=== PATIENT | female | born 1955 | race African-American/Black ===

== ENCOUNTER 2018-04-30 00:40 | Emergency (ER) | payer MEDICARE, MEDICAID ==
[2018-04-30] MEDS ORDERED: Sodium Chloride 0.9% 10 ML Syringe FLUSH PRN (00:54)
[2018-04-30] MEDS: Sodium Chloride 0.9% 1,000 ML IV ONE (01:45)
[2018-04-30 01:56] LABS: CHLORIDE,CL 101 mmol/L (98-107); SODIUM,NA 139 mmol/L (136-145)
[2018-04-30 01:58] LABS: ANION GAP 12.4 mmol/L (10-20)
[2018-04-30] MEDS: Ondansetron 4 MG/2 ML SDV IVPUSH ONE (02:00)
[2018-04-30] MEDS: Ketorolac 30 MG/ML SDV IVPUSH ONE (02:03)
--- NOTE | 2018-04-30 02:43 | EDM.PDOC ---
ED HPI GENERAL MEDICAL PROBLEM - General Stated Complaint: Abdominal pain Time Seen by Provider: 04/30/18 00:53 Source of Information: Reports: Patient, RN, RN Notes Reviewed History Limitations: Reports: No Limitations - History of Present Illness INITIAL COMMENTS - FREE TEXT/NARRATIVE: Patient is brought to the ED at [facility] via EMS for severe generalized abdominal pain. Patient states the pain started early today. She denies any N/V/ D. No blood in stool. She states the pain is sharp and stabbing. No radiation of the pain. She states the pain is located above the umbilicus to the epigastric area. No recent abdominal surgeries per patient. 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 Denies: Diarrhea, Nausea, Vomiting Skin: Reports: No Symptoms Neurological: Reports: No Symptoms ED EXAM, GI/ABD - Physical Exam Exam: See Below Exam Limited By: No Limitations General Appearance: Alert, Moderate Distress Respiratory/Chest: No Respiratory Distress, Lungs Clear, Normal Breath Sounds Cardiovascular: Normal Peripheral Pulses, Regular Rate, Rhythm GI/Abdominal Exam: Soft, Tender, Abnormal Bowel Sounds (Hyperactive) Back Exam: Normal Inspection Extremities: Normal Inspection Neurological: Alert, Oriented Skin Exam: Warm, Dry, Intact, Normal Color Course - Orders/Labs/Meds Orders: Active Orders 24 hr Category Date Time Status Abdomen Pelvis w Cont [CT] Stat Exams 04/30/18 01:20 Taken DRUG SCREEN, URINE [URCHEM] Stat Lab 04/30/18 00:56 Ordered UA W/MICROSCOPIC [URIN] Stat Lab 04/30/18 00:56 Ordered Sodium Chloride 0.9% [Saline Flush] Med 04/30/18 00:54 Active 10 ml FLUSH ASDIRECTED PRN Peripheral IV Insertion Adult [OM.PC] Routine Oth 04/30/18 00:54 Ordered Medication Orders Sodium Chloride (Saline Flush) 10 ml FLUSH ASDIRECTED PRN PRN Reason: Keep Vein Open Labs: Laboratory Tests 04/30/18 04/30/18 04/30/18 Range/Units 01:28 01:28 01:28 WBC 5.3 (4.0-10.0) x10^3/uL RBC 4.47 (4.00-5.50) x10^6/uL Hgb 13.6 D (12.0-16.0) g/dL Hct 40.7 (33.0-47.0) % MCV 91.1 (78.0-93.0) fL MCH 30.4 (26.0-32.0) pg MCHC 33.4 (32.0-36.0) g/dL RDW Coeff of Heraclio 16.4 H (10.0-15.0) % Plt Count 432 H D (130-400) x10^3/uL Neut % (Auto) 63.1 (50.0-80.0) % Lymph % (Auto) 26.5 (25.0-50.0) % [place] % (Auto) 8.1 (2.0-11.0) % Eos % (Auto) 1.5 (0.0-4.0) % Baso % (Auto) 0.8 (0.2-1.2) % Sodium 139 (136-145) mmol/L Potassium 3.4 L (3.5-5.1) mmol/L Chloride 101 (98-107) mmol/L Carbon Dioxide 29 (21-32) mmol/L Anion Gap 12.4 (10-20) mmol/L BUN 18 (7-18) mg/dL Creatinine 1.0 (0.55-1.02) mg/dL Est Cr Clr Drug Dosing 48.25 mL/min Estimated GFR (MDRD) > 60 Glucose 126 H (74-106) mg/dL Lactic Acid 0.8 (0.4-2.0) mmol/L Calcium 9.8 (8.5-10.1) mg/dL Corrected Calcium 10.36 H (8.5-10.1) mg/dL Total Bilirubin 0.5 (0.2-1.0) mg/dL AST 19 (15-37) U/L ALT 23 (14-59) U/L Alkaline Phosphatase 86 (46-116) U/L C-Reactive Protein 0.3 (<=0.9) mg/dL Total Protein 9.6 H (6.4-8.2) g/dL Albumin 3.3 L (3.4-5.0) g/dL Globulin 6.3 Albumin/Globulin Ratio 0.52 Amylase 88 (25-115) U/L Lipase 101 (73-393) U/L Meds: Medications Generic Name Dose Route Start Last Admin Trade Name Freq PRN Reason Stop Dose Admin Sodium Chloride 10 ml 04/30/18 00:54 Saline Flush FLUSH ASDIRECTED PRN Keep Vein Open Discontinued Medications Generic Name Dose Route Start Last Admin Trade Name Freq PRN Reason Stop Dose Admin Sodium Chloride 1,000 mls @ 999 mls/hr 04/30/18 00:55 04/30/18 01:45 Normal Saline IV 04/30/18 01:55 999 mls/hr ONETIME ONE Administration Iopamidol 100 ml 04/30/18 01:47 Isovue-300 (61%) IVPUSH 04/30/18 01:48 ONETIME ONE Ketorolac Tromethamine 30 mg 04/30/18 00:56 04/30/18 02:03 Toradol IVPUSH 04/30/18 00:57 30 mg ONETIME ONE Administration Ondansetron HCl 4 mg 04/30/18 00:55 04/30/18 02:00 Zofran IVPUSH 04/30/18 00:56 4 mg ONETIME ONE Administration - Radiology Interpretation Free Text/Narrative:: CT Abd/Pelvis: SBO 2/2 right lower quadrant ventral hernia; multiple other findings as described in scanned report in EMR CT Results Date: 04/30/18 CT Results Time: 02:26 Departure - Departure Time of Disposition: 03:00 Disposition: DC/Tfer to Acute Hospital 02 Condition: Good Clinical Impression: SBO (small bowel obstruction) Ventral hernia Qualifiers: Obstruction and gangrene presence: with obstruction but without gangrene Qualified Code(s): K43.6 - Other and unspecified ventral hernia with obstruction , without gangrene - Discharge Information *PRESCRIPTION DRUG MONITORING PROGRAM REVIEWED*: Not Applicable *COPY OF PRESCRIPTION DRUG MONITORING REPORT IN PATIENT JANEEN: Not Applicable Forms: Interfacility Transfer [facility] ED Communication - ED Communication Date/Time Date: 04/30/18 Time Called: 02:50 - Discussed Case With (1) Discussed Case With (1): Admitting Provider (Dr. Gloria, surgeon) - Conversation Summary Admitting Provider Agreed to Patient's Admission: Yes Patient Aware of Amendments fo Care Plan: Yes - Problem List Review Problem List Initiated/Reviewed/Updated: Yes - My Orders Last 24 Hours: My Active Orders 04/30/18 00:54 Sodium Chloride 0.9% [Saline Flush] 10 ml FLUSH ASDIRECTED PRN Peripheral IV Insertion Adult [OM.PC] Routine 04/30/18 00:56 DRUG SCREEN, URINE [URCHEM] Stat UA W/MICROSCOPIC [URIN] Stat 04/30/18 01:20 Abdomen Pelvis w Cont [CT] Stat - Assessment/Plan Last 24 Hours: My Active Orders 04/30/18 00:54 Sodium Chloride 0.9% [Saline Flush] 10 ml FLUSH ASDIRECTED PRN Peripheral IV Insertion Adult [OM.PC] Routine 04/30/18 00:56 DRUG SCREEN, URINE [URCHEM] Stat UA W/MICROSCOPIC [URIN] Stat 04/30/18 01:20 Abdomen Pelvis w Cont [CT] Stat Assessment:: SBO Ventral Hernia Abdominal Pain Plan: Case discussed with Dr. Gloria, Surgery [facility]. Patient accepted in transfer. Patient will be sent via ALS ground. Patient aware of transfer and agrees with plan of care. Patient discharged in stable condition.
[2018-04-30] MEDS: Iopamidol 612 MG/ML 100 ML Bottle IVPUSH ONE (06:26)
== END 2018-04-30 03:30 | disposition short-term general hospital (02) ==
LOC: VM.ED 00:40
DX: K43.6 Other and unspecified ventral hernia with obstruction, without gangrene (principal); K56.609 Unspecified intestinal obstruction, unspecified as to partial versus complete obstruction
CPT/HCPCS: 36415; 74177; 80053; 82150; 83605; 83690; 85025; 86140; 96361; 96374; 96375; 99285; J1885; J2405; J7030; Q9967

== ENCOUNTER 2018-05-02 05:40 | Emergency (ER) | payer MEDICARE, MEDICAID ==
[2018-05-02] MEDS ORDERED: Sodium Chloride 0.9% 10 ML Syringe FLUSH PRN (05:51)
--- NOTE | 2018-05-02 06:00 | EDM.PDOC ---
ED HPI GENERAL MEDICAL PROBLEM - General Chief Complaint: Abdominal Pain Stated Complaint: Abdominal Pain Time Seen by Provider: 05/02/18 05:45 Source of Information: Reports: Patient, EMS History Limitations: Reports: No Limitations - History of Present Illness INITIAL COMMENTS - FREE TEXT/NARRATIVE: Patient comes into the emergency department with complaint of abdominal pain. Patient was seen in the emergency department approximately 48 hours ago and was diagnosed with a ventral hernia along with a bowel obstruction. Surgical consultation was completed with [facility] with recommendation to have the patient transferred for further surgical intervention. Patient decided to leave AMA for she did not feel her house was secure and did not trust the police to secure it. She did not trust the people that were staying there as well. Patient states that a family member had come in on the bus tonight at 11:30 so she decided to present to the emergency department. However before presenting to the emergency department she states she had one drink at home with gin and orange juice for excellently 2 shots in the drink around 2 hours ago. The patient contacted EMS to transport her. When EMS was on scene EMS reports that the patient was cooking potatoes and was eating upon their arrival into the house. Patient states she was hungry and eats some food prior to coming to the hospital. patient states that the abdominal pain has not gone away it's gotten worse. she denies any nausea or vomiting, chest pain, shortness of breath, headache, dizziness, numbness or tingling. she is not able to localize her discomfort in her abdominal cavity other than "the whole thing hurts ". she has not taken her temperature she has not no she's been warm. patient is a poor historian does not offer a lot of insight. Onset: Gradual Location: Reports: Generalized Quality: Reports: Pressure, Other Severity: Moderate Improves with: Reports: None Worsens with: Reports: None Associated Symptoms: Reports: No Other Symptoms Abdomen Pain Score (Numeric/FACES): 7 - Related Data Allergies Allergy/AdvReac Type Severity Reaction Status Date / Time No Known Allergies Allergy Verified 05/02/18 06:34 Home Meds: Home Meds Cyanocobalamin (Vitamin B-12) [B-12] 1,000 mcg PO DAILY 04/30/18 [History] Losartan/Hydrochlorothiazide [Losartan-HCTZ 100-12.5 MG] 1 tab PO DAILY [History] Magnesium Oxide 400 mg PO DAILY 04/30/18 [History] Past Medical History Cardiovascular History: Reports: Hypertension ED ROS GENERAL - Review of Systems Review Of Systems: See Below Constitutional: Reports: No Symptoms HEENT: Reports: No Symptoms Respiratory: Reports: No Symptoms Cardiovascular: Reports: No Symptoms Endocrine: Reports: No Symptoms GI/Abdominal: Reports: Abdominal Pain : Reports: No Symptoms Musculoskeletal: Reports: No Symptoms Skin: Reports: No Symptoms Neurological: Reports: No Symptoms Psychiatric: Reports: No Symptoms Hematologic/Lymphatic: Reports: No Symptoms Immunologic: Reports: No Symptoms ED EXAM, GENERAL - Physical Exam Exam: See Below Exam Limited By: No Limitations General Appearance: Alert, WD/WN, No Apparent Distress Head: Atraumatic, Normocephalic Neck: Normal Inspection, Supple, Non-Tender, Full Range of Motion Respiratory/Chest: No Respiratory Distress, Lungs Clear, Normal Breath Sounds, No Accessory Muscle Use, Chest Non-Tender Cardiovascular: Normal Peripheral Pulses, Regular Rate, Rhythm, No Edema GI/Abdominal: Distended, Guarding, Abnormal Bowel Sounds Back Exam: Normal Inspection, Full Range of Motion Extremities: Normal Inspection, Normal Range of Motion, Non-Tender Neurological: Alert, Oriented, Normal Gait, Normal Reflexes Psychiatric: Normal Affect, Normal Mood Skin Exam: Warm, Dry, Intact, Normal Color, No Rash Course - Vital Signs Last Recorded V/S: Last Vital Signs Temp 35.6 C 05/02/18 06:36 Pulse 82 05/02/18 07:11 Resp 16 05/02/18 07:11 BP 92/54 L 05/02/18 07:11 Pulse Ox 97 05/02/18 07:11 - Orders/Labs/Meds Orders: Active Orders 24 hr Category Date Time Status Abdomen Pelvis w Cont [CT] Stat Exams 05/02/18 05:51 Taken CULTURE BLOOD [BC] Stat Lab 05/02/18 07:17 Ordered CULTURE BLOOD [BC] Stat Lab 05/02/18 07:17 Ordered DRUG SCREEN, URINE [URCHEM] Stat Lab 05/02/18 05:52 Ordered UA W/MICROSCOPIC [URIN] Stat Lab 05/02/18 05:52 Ordered Sodium Chloride 0.9% [Normal Saline] 1,000 ml Med 05/02/18 07:18 Active IV ONETIME Sodium Chloride 0.9% [Saline Flush] Med 05/02/18 05:51 Active 10 ml FLUSH ASDIRECTED PRN cefTRIAXone [Rocephin] Med 05/02/18 08:00 Active 1 gm IVPUSH DAILY Blood Culture x2 Reflex Set [OM.PC] Stat Oth 05/02/18 07:17 Ordered Peripheral IV Insertion Adult [OM.PC] Stat Ot 05/02/18 05:50 Ordered Medication Orders Ceftriaxone Sodium (Rocephin) 1 gm IVPUSH DAILY ARIA Last Admin: 05/02/18 07:39 Dose: 1 gm Sodium Chloride (Normal Saline) 1,000 mls @ 999 mls/hr IV ONETIME ONE Stop: 05/02/18 08:18 Last Admin: 05/02/18 07:39 Dose: 999 mls/hr Sodium Chloride (Saline Flush) 10 ml FLUSH ASDIRECTED PRN PRN Reason: Keep Vein Open Labs: Laboratory Tests 05/02/18 05/02/18 05/02/18 Range/Units 06:30 06:30 06:30 WBC 4.5 (4.0-10.0) x10^3/uL RBC 3.56 L (4.00-5.50) x10^6/uL Hgb 10.8 L D (12.0-16.0) g/dL Hct 32.9 L (33.0-47.0) % MCV 92.4 (78.0-93.0) fL MCH 30.3 (26.0-32.0) pg MCHC 32.8 (32.0-36.0) g/dL RDW Coeff of Heraclio 15.9 H (10.0-15.0) % Plt Count 310 D (130-400) x10^3/uL Neut % (Auto) 39.7 L (50.0-80.0) % Lymph % (Auto) 48.0 (25.0-50.0) % [place] % (Auto) 8.7 (2.0-11.0) % Eos % (Auto) 2.9 (0.0-4.0) % Baso % (Auto) 0.7 (0.2-1.2) % Sodium 136 (136-145) mmol/L Potassium 3.1 L (3.5-5.1) mmol/L Chloride 101 (98-107) mmol/L Carbon Dioxide 25 (21-32) mmol/L Anion Gap 13.1 (10-20) mmol/L BUN 19 H (7-18) mg/dL Creatinine 1.8 H (0.55-1.02) mg/dL Est Cr Clr Drug Dosing 25.63 mL/min Estimated GFR (MDRD) 35 Glucose 111 H (74-106) mg/dL Lactic Acid 3.0 H* (0.4-2.0) mmol/L Calcium 8.5 (8.5-10.1) mg/dL Corrected Calcium 9.30 (8.5-10.1) mg/dL Total Bilirubin 0.3 (0.2-1.0) mg/dL AST 24 (15-37) U/L ALT 21 (14-59) U/L Alkaline Phosphatase 70 (46-116) U/L Total Protein 8.7 H (6.4-8.2) g/dL Albumin 3.0 L (3.4-5.0) g/dL Globulin 5.7 Albumin/Globulin Ratio 0.53 Ethyl Alcohol 225 H (0-3) mg/dL Meds: Medications Generic Name Dose Route Start Last Admin Trade Name Freq PRN Reason Stop Dose Admin Ceftriaxone Sodium 1 gm 05/02/18 08:00 05/02/18 07:39 Rocephin IVPUSH 1 gm DAILY ARIA Administration Sodium Chloride 1,000 mls @ 999 mls/hr 05/02/18 07:18 05/02/18 07:39 Normal Saline IV 05/02/18 08:18 999 mls/hr ONETIME ONE Administration Sodium Chloride 10 ml 05/02/18 05:51 Saline Flush FLUSH ASDIRECTED PRN Keep Vein Open Discontinued Medications Generic Name Dose Route Start Last Admin Trade Name Freq PRN Reason Stop Dose Admin Iopamidol 100 ml 05/02/18 06:36 05/02/18 06:46 Isovue-300 (61%) IVPUSH 05/02/18 06:37 100 ml ONETIME ONE Administration Departure - Departure Time of Disposition: 07:48 Disposition: DC/Tfer to Acute Hospital 02 Condition: Good Clinical Impression: Small bowel obstruction - Discharge Information *PRESCRIPTION DRUG MONITORING PROGRAM REVIEWED*: Not Applicable *COPY OF PRESCRIPTION DRUG MONITORING REPORT IN PATIENT JANEEN: Not Applicable Referrals: Randy,Kellie Shira, DO [Primary Care Provider] - Forms: ED Department Discharge, Interfacility Transfer EMTALA - My Orders Last 24 Hours: My Active Orders 05/02/18 05:50 Peripheral IV Insertion Adult [OM.PC] Stat 05/02/18 05:51 Abdomen Pelvis w Cont [CT] Stat Sodium Chloride 0.9% [Saline Flush] 10 ml FLUSH ASDIRECTED PRN 05/02/18 05:52 DRUG SCREEN, URINE [URCHEM] Stat UA W/MICROSCOPIC [URIN] Stat 05/02/18 07:17 CULTURE BLOOD [BC] Stat CULTURE BLOOD [BC] Stat Blood Culture x2 Reflex Set [OM.PC] Stat 05/02/18 07:18 Sodium Chloride 0.9% [Normal Saline] 1,000 ml IV ONETIME 05/02/18 08:00 cefTRIAXone [Rocephin] 1 gm IVPUSH DAILY - Assessment/Plan Last 24 Hours: My Active Orders 05/02/18 05:50 Peripheral IV Insertion Adult [OM.PC] Stat 05/02/18 05:51 Abdomen Pelvis w Cont [CT] Stat Sodium Chloride 0.9% [Saline Flush] 10 ml FLUSH ASDIRECTED PRN 05/02/18 05:52 DRUG SCREEN, URINE [URCHEM] Stat UA W/MICROSCOPIC [URIN] Stat 05/02/18 07:17 CULTURE BLOOD [BC] Stat CULTURE BLOOD [BC] Stat Blood Culture x2 Reflex Set [OM.PC] Stat 05/02/18 07:18 Sodium Chloride 0.9% [Normal Saline] 1,000 ml IV ONETIME 05/02/18 08:00 cefTRIAXone [Rocephin] 1 gm IVPUSH DAILY Assessment:: 1. Abdominal pain- partial small bowel obstruction secondary to hernia Plan: 1. Labs completed in the ER results reviewed with the pt 2. CT scan completed in the ER results reviewed with the pt 3. UA completed in ER results reviewed with the pt 4. IV started with normal saline given 5. Lactic acid came back elevated. 6. Rocephin given 7. Blood cultures obtained 8. Surgical consult completed in at [facility] Dr. Mcfadden who recommends pt be transferred for surgical consult however it is not a given the pt will undergo surgical intervention. Pt is aware and is agreeable for the transfer.
[2018-05-02] MEDS ORDERED: Iopamidol 612 MG/ML 100 ML Bottle IVPUSH ONE (06:36)
[2018-05-02 07:18] LABS: ANION GAP 13.1 mmol/L (10-20)
[2018-05-02] MEDS ORDERED: Sodium Chloride 0.9% 1,000 ML IV ONE (07:18)
[2018-05-02] MEDS ORDERED: cefTRIAXone 1 GM Vial IVPUSH SCH (08:00)
== END 2018-05-02 08:30 | disposition short-term general hospital (02) ==
LOC: VM.ED 05:40
DX: K56.690 Other partial intestinal obstruction (principal); K43.6 Other and unspecified ventral hernia with obstruction, without gangrene; I10 Essential (primary) hypertension; Z79.899 Other long term (current) drug therapy
CPT/HCPCS: 36415; 74177; 80053; 80305; 81001; 83605; 85025; 87040; 96365; 99284; G0480; J0696; J7030; Q9967

== ENCOUNTER 2020-02-01 11:26 | Observation (INO) | payer MEDICARE, MEDICAID ==
[2020-02-01] MEDS ORDERED: Sodium Chloride 0.9% 10 ML Syringe FLUSH PRN (11:54)
[2020-02-01] MEDS: Sodium Chloride 0.9% 1,000 ML IV SCH ×3 (12:58→22:30)
[2020-02-01] MEDS ORDERED: HYDROmorphone 1 MG/ML Syringe IVPUSH ONE (14:27)
[2020-02-01] MEDS ORDERED: traMADol 50 MG Tab PO PRN (14:27)
[2020-02-01] MEDS ORDERED: Ondansetron 4 MG/2 ML SDV IVPUSH PRN (14:28)
[2020-02-01] MEDS ORDERED: HYDROmorphone 0.5 MG/0.5 ML Syringe IVPUSH ONE (14:45)
[2020-02-01 15:23] LABS: ANION GAP 16.6 mmol/L (10-20)
[2020-02-01] MEDS ORDERED: HYDROmorphone 0.5 MG/0.5 ML Syringe IV PRN (19:10)
--- NOTE | 2020-02-02 01:27 | HP ---
CHIEF COMPLAINT: Dizziness. HISTORY OF PRESENT ILLNESS: This is a 64-year-old female who was seen yesterday for the same complaints, sent home, but found to have a creatinine up to 2.3 when her baseline is normal. She was instructed to stop her blood pressure pills. She states that she had not really been taking her medications other than the blood pressure pills, which are Hyzaar and diltiazem. She comes back today because she is still dizzy. She just now started drinking more water. Last week, she had some vomiting, and then a few days ago she had some diarrhea, but that has all resolved. She has had worsening back pain, seems to be worse after eating. She does have a history of using alcohol. She denies any excessive use. She is a smoker. She has not had any kidney problems before, and she denies taking any NSAIDs for over a month for her back. She states she has had the back problems in the last year, but worsening recently. She has not been short of breath. She had dizziness back in October, but that got better and returned. She never came back for her followup appointment. Her heart rate was 120 back then. Today, she comes in. Her blood pressure is like 80/40. Repeat kidney function showed her creatinine to be at 3. Decision was made to admit her for observation and IV fluids. The patient was quite hopeful to go home. However, after she received a liter of fluids, she was still feeling dizzy. She threw up after she ate. Decision was made to keep her overnight. The patient also did get 0.5 mg of Dilaudid. She vomited immediately after getting it, but nurse feels that the vomiting might have been from just eating. The patient feels that it did help her pain significantly. She denies any fall or other injury. ALLERGIES: Include hydrocodone, nausea and vomiting. MEDICATION LIST: Includes albuterol inhaler as needed, vitamin B12, vitamin, diltiazem 120 daily, doxepin at bedtime. However, she has not been taking vitamin D every 7 days. Magnesium oxide 400 daily and meclizine. PAST MEDICAL HISTORY: She otherwise has a past medical history of asthma, mild, intermittent, essential hypertension, smoking, vitamin D deficiency, hypomagnesemia, moderate depression, anxiety, arthritis, thrombocytopenia in the past, hypercalcemia in the past, B12 deficiency, uncomplicated alcohol dependence, colon polyps, neurodermatitis, colon surgery for sigmoid volvulus and partial bowel resection with a ventral hernia repair, history of hospital- acquired pneumonia, possible biliary cirrhosis, but she has been off medications for that. PAST SURGICAL HISTORY: She has had the colon surgery x2, incisional hernia repair. FAMILY HISTORY: Her mother did have scleroderma and hypertension. Father had hypertension. He was murdered or shot is what her past medical history says. Her son has kidney disease and is on dialysis. SOCIAL HISTORY: She is . Her is actually in [place]. She does smoke every day. Drinks at times, but states she has been too sick to do that recently. She has some children, who live out of state, but a son does live here. REVIEW OF SYSTEMS: General: She reports she has lost 20 pounds in the last month. She has had no appetite. She has not been eating and drinking. She has had vomiting. She has had fatigue. HEENT: No sore throat or trouble swallowing. Respiratory: No cough. No shortness of breath. No wheezing. Cardiac: No chest pain. No palpitations. GI: As stated in the HPI. Musculoskeletal: She has had back pain. It has been chronic, but worse lately. It is all over the back. No point tenderness to the spine. Skin: She has not been itching again, but her fingers are almost peeling, very dry. Neurologic: No numbness or tingling. No confusion. Hematologic: She has not had any easy bleeding or bruising. Psychiatric: She is not confused or anxious. Otherwise, all systems reviewed and found to be negative unless otherwise stated. PHYSICAL EXAMINATION: Vital Signs: On admission to the hospital, I did see the patient after getting fluids. Her temperature was 96.7, then pulse 96, blood pressure 147/76, respiratory rate 24, and O2 of 96% on room air, but her pain level was 7. General: She is in no acute distress. Heart: Regular rate and rhythm. Lungs: Lung sounds are clear to auscultation bilaterally without crackles or wheezes. Abdomen: Has positive bowel sounds. Soft, nontender. Extremities: Warm and dry. No edema. Mental Status: Alert and orientated x3. I did have the patient up. She walked in the clinic. She appeared to be just mildly unstable. She was able to make it to lab. She did have symptoms of dizziness. While doing this, we did not check orthostatics as clinically sure blood pressure was already low. Neck: Carotid pulses are 2+ without bruits. Skin: Showed no abnormal lesions or sores. LABORATORY WORK: This morning showed a glucose 110, BUN 62, creatinine 3.03, sodium 140, potassium 4.1, chloride 92, bicarb 31, calcium 10.1, protein 9.3, AST 150, that is up from 99 in October, ALT 90, bilirubin 1.6. Her CBC did show her to have hemoglobin 12.2, white count 4.3, platelets 166. ESR 50. Magnesium level was actually high like over 5. It was 5.2. Vitamin D, SPEP, vitamin B12 pending. ASSESSMENT: 1. Dizziness, likely orthostatic hypotension due to volume depletion and dehydration. 2. Acute renal failure, probably due to volume depletion. 3. Essential hypertension, now with hypotension. 4. Tachycardia due to volume depletion. 5. Back pain, chronic issue. Denies new injury. 6. History of primary biliary cirrhosis, mildly elevated bilirubin. She is not on any treatments for that currently. 7. History of bowel surgeries and B12 deficiency. PLAN: At this point, the patient was admitted for observation for IV fluids. We gave her first liter 250 an hour. Now, we will switch her over to 150 mL. Keep her overnight, monitoring with telemetry. Repeat lab work in the morning. I suspect she was just very highly dehydrated. No infection is suspected. Her UA showed no wbc's or rbc's, but did have trace protein and a few granular casts. We will repeat her kidney function later this afternoon and do a lipase level. We will use small doses of IV Dilaudid for pain control and oral tramadol. We will give her a diet as tolerated for DVT prophylaxis. Anticipate a short stay less than 24 hours. She will be up and ambulating for smoking. She did not want a nicotine patch. She is a code level 1. MKA: 02/01/2020 19:28:36 MODL: 02/02/2020 00:53:37 /[id number]
[2020-02-02] MEDS: Sodium Chloride 0.9% 1,000 ML IV SCH (05:06)
[2020-02-02] MEDS ORDERED: Cyanocobalamin (Vitamin B12) 1,000 MCG Tab PO SCH (08:00)
[2020-02-02] MEDS ORDERED: Magnesium Sulfate/Water 4 GM in Premix Bag 1 BAG IV ONE (08:03)
--- NOTE | 2020-02-02 11:31 | DISCH ---
PRIMARY DISCHARGE DIAGNOSES: 1. Acute renal failure secondary to volume depletion and dehydration. 2. Dizziness secondary to hypovolemia, resolved. 3. Back pain, resolved, just got 1 dose of IV Dilaudid. The patient denied any injury. It has been a chronic problem. SPEP was drawn in the clinic and is pending. 4. Essential hypertension, had been off her medications. 5. Tachycardia due to volume depletion, resolved. 6. Severe hypomagnesemia, being replaced IV. 7. History of cirrhosis, early, probably due to alcohol. The patient denies any excessive alcohol use. Lipase was normal. 8. History of bowel surgeries and B12 deficiency. B12 level was low normal through the clinic at 576. 9. Anxiety and depression. 10.Emphysema and smoking. 11.History of thrombocytopenia with near pancytopenia on her current labs. REASON FOR ADMISSION: On the date of admission, this 64-year-old female came for a 1-day recheck of feeling dizzy after she left the urgent care. Creatinine did come back 2.3. We urged her to drink more fluids and stop her blood pressure pills. She had recently had some nausea and vomiting, however, that had resolved. She came back dizzy. Her blood pressure was like 80/40. Decision was made to admit her to observation for IV fluids. The patient was hopeful to go home the same day; however, when I rounded again on her around 5 p.m., she stated she was feeling better but had thrown up what she had eaten, and so, she agreed to stay and get IV fluids overnight. Her creatinine which was 3.0 on admission had actually improved down to 1.6 today. She received IV fluids and was making urine okay. She was eating 100% of her meal for supper. She tolerated that without vomiting. She otherwise had a magnesium level that was elevated on admission, but 0.9 this morning. We replaced IV. She did have a history of that, low magnesium. Bilirubin was 1.4 which had improved, ALT 151, and AST 88. She has had elevated liver enzymes since October. Otherwise, her white count was 3.6, hemoglobin down to 9.5, and platelets 138. She did not receive any Lovenox for DVT prophylaxis as it was felt she would have just a short-term stay. She had no blood in her vomit. No black stools. Her hemoglobin was 12 on admission, however, it was felt to go down from hemodilution. She never had any abdominal pain and her back pain had resolved at the time of discharge. UA was done which did not show any rbc's or wbc's, did have a few granular casts. Otherwise, the patient was not short of breath. She was not coughing. She does have a history of smoking and alcohol use, particularly she said she drinks Gin. She also had gotten losartan and hydrochlorothiazide separately for a 3-month supply in October and diltiazem 30 pills in October, never picked up again from the pharmacy. Very likely, she had not even been compliant with her blood pressure pills, and in fact, went into severe dehydration and renal failure. The patient admits she was not drinking much water, had had much appetite, and had lost 20 pounds, but now this morning tells me she has a good appetite. She was given some meclizine for the dizziness and she feels like she will probably continue to take that as needed. DISCHARGE PLANS AND INSTRUCTIONS: She will follow up in the clinic with Dr. Padilla on 02/07/2020 as scheduled. We will do a CBC, BMP, and magnesium at that time. She will resume her diltiazem on discharge, but stay off the losartan and hydrochlorothiazide or Hyzaar combination. She will resume magnesium pills 400 daily, vitamin D prescription once a week, B12 1000 mcg daily, vitamins as well as maintain good hydration. Tramadol short supply, 50 mg every 6 hours as needed for pain for up to 3 days, 10 pills given. PHYSICAL EXAMINATION ON DISCHARGE: Vital Signs: The patient's blood pressure was 131/86, respiratory rate 102, temperature 97.8, pulse 19, O2 of 95% on room air. General: She is in no acute distress. Heart: Regular rate and rhythm. S1, S2 without murmur. Lungs: Lung sounds are clear to auscultation bilaterally without crackles or wheezes. Extremities: Warm and dry. No edema. Mental Status: Alert and orientated x3. Abdomen: Positive bowel sounds. Soft and nontender. Back: No tenderness. Mood: She was a little agitated. She said she needed to get out here by noon because she has stuff to do, but she was not being belligerent or anything like that. MKA: 02/02/2020 09:46:37 MODL: 02/02/2020 10:33:07 /[id number]
== END 2020-02-02 13:10 | disposition home or self-care (01) ==
LOC: VM.MS 11:26
PROVIDERS: ADMIT Internal Medicine; ATTEND Internal Medicine
DX: N17.9 Acute kidney failure, unspecified (principal); E86.0 Dehydration; E86.1 Hypovolemia; I10 Essential (primary) hypertension; E83.42 Hypomagnesemia; K74.60 Unspecified cirrhosis of liver; E53.8 Deficiency of other specified B group vitamins; F41.9 Anxiety disorder, unspecified; J45.909 Unspecified asthma, uncomplicated; M54.9 Dorsalgia, unspecified; G89.29 Other chronic pain; F32.9 Major depressive disorder, single episode, unspecified; J43.9 Emphysema, unspecified; F17.200 Nicotine dependence, unspecified, uncomplicated; Z86.79 Personal history of other diseases of the circulatory system; Z98.890 Other specified postprocedural states
CPT/HCPCS: 36415; 80048; 80053; 81001; 83690; 83735; 85025; 96361; 96365; 96366; 96375; A9270; G0378; G0379; J1170; J2405; J3475; J7030

== ENCOUNTER 2020-04-03 23:44 | Emergency (ER) | payer MEDICARE, MEDICAID ==
--- NOTE | 2020-04-04 00:07 | EDM.PDOC ---
ED HPI GENERAL MEDICAL PROBLEM - General Chief Complaint: General Stated Complaint: fall, intoxication Time Seen by Provider: 04/03/20 23:45 Source of Information: Reports: Patient, EMS, EMS Notes Reviewed, RN, RN Notes Reviewed History Limitations: Reports: Intoxication - History of Present Illness INITIAL COMMENTS - FREE TEXT/NARRATIVE: Patient presents to ER per [facility] ambulance service. Patient was going home to her apartment which is [place] a bar in town, when she had a witnessed fall, hit her head and a witnessed loss of consciousness. Bystanders told EMS patient was unconscious for approximately 20 seconds. Patient denies fall, does not know why she has a lump on her head or a scrape on her lema. Patient denies any pain at this time. Patient states she has had 1 drink today, denies any drug use. Onset: Today, Sudden Location: Reports: Head - Related Data Allergies Allergy/AdvReac Type Severity Reaction Status Date / Time hydrocodone AdvReac Nausea and Verified 04/03/20 23:49 Vomiting Home Meds: Home Meds Cyanocobalamin (Vitamin B-12) [B-12] 1,000 mcg PO DAILY 04/30/18 [History] Magnesium Oxide 400 mg PO DAILY 04/30/18 [History] Albuterol [Ventolin HFA] 2 puff INH Q4H PRN 12/08/18 [History] Ergocalciferol (Vitamin D2) [Vitamin D2] 50,000 unit PO Q7D 12/08/18 [History] Doxepin [SINEquan] 50 mg PO BEDTIME 02/01/20 [History] Meclizine [Antivert] 25 mg PO Q4HR PRN 02/01/20 [History] Diltiazem [Cardizem CD] 120 mg PO DAILY #90 cap.cd 02/02/20 [Rx] Past Medical History HEENT History: Reports: Cataract Cardiovascular History: Reports: Hypertension Other Respiratory History: pneumonia. emphysema Gastrointestinal History: Reports: Colon Polyp Other Gastrointestinal History: sigmoid volvulus. partial small bowel obstruction Musculoskeletal History: Reports: Arthritis Other Neuro History: neurodermatitis Psychiatric History: Reports: Anxiety, Depression Other Psychiatric History: alcohol dependence. smoking Other Hematologic History: hypercalcemia. hypomagnesium. B12 deficiency. thrombocytopenia - Past Surgical History HEENT Surgical History: Reports: Cataract Surgery, Oral Surgery GI Surgical History: Reports: Colonoscopy Other GI Surgeries/Procedures: ventral hernia repair Social & Family History - Family History Family Medical History: Unobtainable - Caffeine Use Caffeine Use: Reports: Tea ED ROS GENERAL - Review of Systems Review Of Systems: Comprehensive ROS is negative, except as noted in HPI. ED EXAM, GENERAL - Physical Exam Exam: See Below Exam Limited By: Intoxication General Appearance: Alert, Anxious, Mild Distress Eye Exam: Bilateral Eye: Conjunctival Injection, PERRL (+3, sluggish) Ears: Normal External Exam, Normal Canal, Hearing Grossly Normal Nose: Normal Inspection Throat/Mouth: Normal Inspection, Other (lips very dry) Head: Other (large hematoma to the left upper occiputal area) Neck: Normal Inspection, Supple, Non-Tender, Full Range of Motion Respiratory/Chest: No Respiratory Distress, No Accessory Muscle Use, Chest Non- Tender, Decreased Breath Sounds Cardiovascular: Normal Peripheral Pulses, Regular Rate, Rhythm, No Edema, No Gallop, No JVD, No Murmur, No Rub Peripheral Pulses: 2+: Radial (L), Radial (R) GI/Abdominal: Normal Bowel Sounds, Soft, Non-Tender (Female) Exam: Deferred Rectal (Female) Exam: Deferred Back Exam: Normal Inspection, Full Range of Motion, NT Extremities: Normal Inspection, Normal Range of Motion, Non-Tender, Normal Capillary Refill, No Pedal Edema Neurological: Alert, Memory Loss Recent Events Psychiatric: Anxious, Tearful Skin Exam: Warm, Dry, Normal Color, No Rash, Other (Abrasion to the left lema) Lymphatic: No Adenopathy Course - Vital Signs Last Recorded V/S: Last Vital Signs Temp 96.9 F 04/04/20 03:47 Pulse 96 04/04/20 03:47 Resp 16 04/04/20 03:47 BP 139/100 H 04/04/20 04:00 Pulse Ox 89 L 04/04/20 04:00 - Orders/Labs/Meds Orders: Active Orders 24 hr Category Date Time Status Cervical Spine wo Cont [CT] Stat Exams 04/03/20 23:47 Taken Head wo Cont [CT] Stat Exams 04/03/20 23:47 Taken MVI, Adult with Vitamin K [Infuvite Adult] 10 ml Med 04/04/20 00:45 Active Folic Acid 1 mg Thiamine [Vitamin B-1] 100 mg Sodium Chloride 0.9% [Normal Saline] 1,000 ml IV Q24H Sodium Chloride 0.9% [Saline Flush] Med 04/04/20 00:42 Active 10 ml FLUSH ASDIRECTED PRN Peripheral IV Insertion Adult [OM.PC] Stat Oth 04/04/20 00:42 Ordered Medication Orders Multivitamins/Minerals 10 ml/Folic Acid 1 mg/ Thiamine HCl 100 mg/ Sodium Chloride 1,011.2 mls @ 150 mls/hr IV Q24H ARIA Stop: 04/06/20 07:30 Last Admin: 04/04/20 01:32 Dose: 150 mls/hr Documented by: MARIE Sodium Chloride (Saline Flush) 10 ml FLUSH ASDIRECTED PRN PRN Reason: Keep Vein Open Last Admin: 04/04/20 01:41 Dose: 10 ml Documented by: MARIE Labs: Laboratory Tests 04/04/20 04/04/20 Range/Units 00:08 00:08 WBC 6.5 (4.0-10.0) x10^3/uL RBC 4.11 (4.00-5.50) x10^6/uL Hgb 12.8 D (12.0-16.0) g/dL Hct 38.0 (33.0-47.0) % MCV 92.5 (78.0-93.0) fL MCH 31.1 (26.0-32.0) pg MCHC 33.7 (32.0-36.0) g/dL RDW Coeff of Heraclio 13.4 (10.0-15.0) % Plt Count 339 D (130-400) x10^3/uL Neut % (Auto) 50.4 (50.0-80.0) % Lymph % (Auto) 41.5 (25.0-50.0) % Faulkner % (Auto) 5.0 (2.0-11.0) % Eos % (Auto) 2.3 (0.0-4.0) % Baso % (Auto) 0.8 (0.2-1.2) % Sodium 142 (136-145) mmol/L Potassium 4.6 (3.5-5.1) mmol/L Chloride 106 (98-107) mmol/L Carbon Dioxide 26 (21-32) mmol/L Anion Gap 14.6 (10-20) mmol/L BUN 14 D (7-18) mg/dL Creatinine 0.8 (0.55-1.02) mg/dL Est Cr Clr Drug Dosing TNP Estimated GFR (MDRD) > 60 Glucose 90 (74-106) mg/dL Calcium 8.7 (8.5-10.1) mg/dL Corrected Calcium 9.18 (8.5-10.1) mg/dL Total Bilirubin 0.3 (0.2-1.0) mg/dL AST 76 H (15-37) U/L ALT 46 (14-59) U/L Alkaline Phosphatase 88 (46-116) U/L Total Protein 9.9 H (6.4-8.2) g/dL Albumin 3.4 (3.4-5.0) g/dL Globulin 6.5 Albumin/Globulin Ratio 0.52 Ethyl Alcohol 392 H* (0-3) mg/dL Meds: Medications Generic Name Dose Route Start Last Admin Trade Name Freq PRN Reason Stop Dose Admin Multivitamins/Minerals 10 ml/ 1,011.2 mls @ 150 mls/hr 04/04/20 00:45 04/04/20 01:32 Folic Acid 1 mg/ Thiamine HCl IV 04/06/20 07:30 150 mls/hr 100 mg/ Sodium Chloride Q24H ARIA Administration Sodium Chloride 10 ml 04/04/20 00:42 04/04/20 01:41 Saline Flush FLUSH 10 ml ASDIRECTED PRN Administration Keep Vein Open - Radiology Interpretation Free Text/Narrative:: Head CT wo contrast: No acute findings C-Spine CT wo contrast: Degenerative disc disease, age related changes, No acute findings See rad report - Re-Assessments/Exams Free Text/Narrative Re-Assessment/Exam: 04/04/20 04:02 Patient is awake, alert, and appropriate upon discharge. Patient states her oxygen saturation always runs a little low. Suggested she discuss this with her PCP on Friday. Patient home per taxi. Departure - Departure Time of Disposition: 03:58 Disposition: Home, Self-Care 01 Condition: Fair Clinical Impression: Hematoma Concussion Qualifiers: Encounter type: initial encounter Loss of consciousness presence/duration: with LOC of 30 min or less Qualified Code(s): S06.0X1A - Concussion with loss of consciousness of 30 minutes or less, initial encounter - Discharge Information *PRESCRIPTION DRUG MONITORING PROGRAM REVIEWED*: No *COPY OF PRESCRIPTION DRUG MONITORING REPORT IN PATIENT JANEEN: No Instructions: Concussion, Adult, [id number], Post-Concussion Syndrome, [id number], Head Injury, Adult, [id number] Referrals: [facility] [Primary Care Provider] - Forms: ED Department Discharge Additional Instructions: Return to the ER with any worsening of symptoms (vomiting, visual disturbances, severe headache) Take your home medications as prescribed Follow up with your primary care facility at your regularly scheduled appointment on Friday use Ice to the head as tolerated Sepsis Event Note (ED) - Evaluation Sepsis Screening Result: No Definite Risk - Focused Exam Vital Signs: Vital Signs Temp Pulse Resp BP BP Pulse Ox 04/04/20 04:00 139/100 H 89 L 04/04/20 03:47 96.9 F 96 16 95/62 04/04/20 00:40 150/96 H 89 L 04/03/20 23:49 96.7 F L 106 H 18 160/98 H 88 L - My Orders Last 24 Hours: My Active Orders 04/03/20 23:47 Cervical Spine wo Cont [CT] Stat Head wo Cont [CT] Stat 04/04/20 00:42 Sodium Chloride 0.9% [Saline Flush] 10 ml FLUSH ASDIRECTED PRN Peripheral IV Insertion Adult [OM.PC] Stat 04/04/20 00:45 MVI, Adult with Vitamin K [Infuvite Adult] 10 ml Folic Acid 1 mg Thiamine [Vitamin B-1] 100 mg Sodium Chloride 0.9% [Normal Saline] 1,000 ml IV Q24H - Assessment/Plan Last 24 Hours: My Active Orders 04/03/20 23:47 Cervical Spine wo Cont [CT] Stat Head wo Cont [CT] Stat 04/04/20 00:42 Sodium Chloride 0.9% [Saline Flush] 10 ml FLUSH ASDIRECTED PRN Peripheral IV Insertion Adult [OM.PC] Stat 04/04/20 00:45 MVI, Adult with Vitamin K [Infuvite Adult] 10 ml Folic Acid 1 mg Thiamine [Vitamin B-1] 100 mg Sodium Chloride 0.9% [Normal Saline] 1,000 ml IV Q24H
[2020-04-04 00:37] LABS: CHLORIDE,CL 106 mmol/L (98-107); SODIUM,NA 142 mmol/L (136-145)
[2020-04-04 00:38] LABS: ANION GAP 14.6 mmol/L (10-20)
[2020-04-04] MEDS ORDERED: Sodium Chloride 0.9% 10 ML Syringe FLUSH PRN (00:42)
[2020-04-04] MEDS ORDERED: MVI, Adult with Vitamin K 10 ML, Folic Acid 1 MG, Thiamine 100 MG in Sodium Chloride 0.... IV SCH ×4 (00:45)
--- NOTE | 2020-04-04 07:37 | CT ---
[id number] CT/CT Cervical Spine WO IV Exam: CT Cervical Spine WO IV Clinical Data: TRAUMA COMPARISON: NO PREVIOUS SIMILAR EXAM IS AVAILABLE FINDINGS: There is no fracture or subluxation There are heavy atheromatous calcifications There are early degenerative changes of the cervical spine There is significant bullous emphysema There is an enlarged empty sella IMPRESSION: NO FRACTURE OR SUBLUXATION Usman Kimball MD 04/04/20 0736 Thank you for allowing us to participate in the care of your patient.
--- NOTE | 2020-04-04 07:38 | CT ---
[id number] CT/CT Head WO IV EXAM: CT Head WO IV CLINICAL DATA: TRAUMA COMPARISON: NO PREVIOUS SIMILAR EXAM IS AVAILABLE FOR COMPARISON. FINDINGS: There is no mass or mass effect. There is no hemorrhage or hydrocephalus. There are no extra-axial fluid collections. There are no sites of abnormal attenuation. Soft tissue swelling is seen in the left frontal region IMPRESSION: NO PLAIN CT EVIDENCE OF ACUTE INTRACRANIAL PROCESS. Usman Kimball MD 04/04/20 0737 Thank you for allowing us to participate in the care of your patient.
== END 2020-04-04 04:10 | disposition home or self-care (01) ==
LOC: VM.ED 23:44
DX: S06.0X1A Concussion with loss of consciousness of 30 minutes or less, initial encounter (principal); S00.03XA Contusion of scalp, initial encounter; Z88.5 Allergy status to narcotic agent; J43.9 Emphysema, unspecified; I10 Essential (primary) hypertension; F32.9 Major depressive disorder, single episode, unspecified; F41.9 Anxiety disorder, unspecified; M19.90 Unspecified osteoarthritis, unspecified site; Z79.899 Other long term (current) drug therapy; S80.812A Abrasion, left lower leg, initial encounter; F10.129 Alcohol abuse with intoxication, unspecified; Z98.890 Other specified postprocedural states; W01.198A Fall on same level from slipping, tripping and stumbling with subsequent striking against other object, initial encounter; Y90.8 Blood alcohol level of 240 mg/100 ml or more
CPT/HCPCS: 36415; 70450; 72125; 80053; 80307; 85025; 96365; 96366; 99284-25; 99284-GF; J3411; J7030

== ENCOUNTER 2020-05-29 15:03 | Inpatient (IN) | payer MEDICARE, MEDICAID, OTHER ==
[2020-05-29] MEDS ORDERED: Acetaminophen 325 MG Tab PO PRN (15:21)
[2020-05-29] MEDS ORDERED: Ondansetron 4 MG/2 ML SDV IV PRN (15:21)
[2020-05-29] MEDS ORDERED: Potassium Chloride Riders 20 MEQ in Premix Bag 1 BAG IV ONE (15:28)
[2020-05-29] MEDS ORDERED: Magnesium Sulfate/Water 2 GM/50 ML BAG IV ONE (15:31)
[2020-05-29] MEDS ORDERED: Sodium Chloride 0.9% 10 ML Syringe FLUSH PRN (15:38)
[2020-05-29] MEDS ORDERED: Pantoprazole 40 MG Vial IVPUSH SCH (16:00)
[2020-05-29] MEDS: NS + KCl 20mEq/L 1,000 ML IV SCH ×2 (17:00→23:57)
[2020-05-29] MEDS ORDERED: Doxepin 25 MG Cap PO PRN (19:34)
[2020-05-29] MEDS ORDERED: Meclizine 25 MG Tab PO PRN (19:34)
[2020-05-29] MEDS: Pantoprazole 40 MG Vial IVPUSH SCH ×2 (19:34→19:35)
[2020-05-29] MEDS ORDERED: Albuterol HFA 18 Gm Inhaler INH PRN (19:34)
[2020-05-29 19:59] LABS: ANION GAP 15.6 mmol/L (10-20)
--- NOTE | 2020-05-29 20:04 | HP ---
CHIEF COMPLAINT: Not being able to eat anything for a while. She is feeling dizzy, having back pain, leg pain, blood pressure concerns. HISTORY OF PRESENT ILLNESS: The patient is a 64-year-old female who says that she "has not been eating much for the past month." She has been extremely stressed. Her son was severely beaten up and is in the ICU in [place], [place], and is going to be placed in a [facility]. She got home 4 days ago. She has been feeling more dizzy. She has not been drinking well. She has not vomited or gagged. She has had occasional diarrhea. Stools have been normal in color. No black stools. No mushy stools. No lua-colored stools. She has not been coughing. No sore throat. She denies any exposure to COVID. The patient has a previous history of alcohol use, which she comments she last drank about a week ago and was just a small amount. When the patient presented to the clinic, she was noted to be quite weak and lethargic. Of interest, to note, the patient had been hospitalized on 02/01/2020 with acute kidney injury related to severe dehydration. Her creatinine had gone up to 3.0 with a blood pressure of 80/40. The patient had been hospitalized for a day with severe dehydration, dizziness due to hypovolemia. She used to be on losartan and hydrochlorothiazide, but then had been switched to diltiazem for blood pressure control. She follows with Dr. Kellie Padilla. The patient has been noted to have elevated liver function tests in the past and has had a remote history of platelet abnormalities in October, but they had improved by January. The patient had not followed up with a clinic appointment that she was to have had in April. She was somewhat vague as to why she did not follow up with that. The patient has not really taken anything over the counter to help with nausea such as antacids or Tylenol. The patient says she just does not like to drink water and will not expound. MEDICATIONS: That she is on are albuterol 2 puffs every 4 hours p.r.n. (I do not believe she is using it), vitamin B12, 1000 mcg 1 pill a day, diltiazem 120 mg 1 pill a day (for blood pressure), doxepin 50 mg 1 pill at bedtime as needed for sleep, magnesium oxide 400 mg 1 pill daily, not currently taking, vitamin D2, 50,000 units once a week (not currently taking). ALLERGIES: Hydrocodone. PAST MEDICAL HISTORY: The patient had acute kidney injury in 01/2020, dizziness, multifactorial, chronic back pain, hypertension, hypomagnesemia, history of cirrhosis probably due to alcohol, history of bowel surgeries with vitamin B12 deficiency, anxiety with depression, emphysema and smoking, thrombocytopenia. She has had chronic anxiety. She has had a sigmoid volvulus in the past with partial bowel resection and ventral hernia repair. She had hospital-acquired pneumonia, history of biliary cirrhosis. She has had a colonoscopy. PAST SURGICAL HISTORY: She has had colon surgeries x2 and incisional hernia surgery. FAMILY MEDICAL HISTORY: Mother has had scleroderma, uncertain what kind of cancer, hypertension. Father has had hypertension, had a gunshot injury. Sisters had hypertension, heart disease. Maternal aunt had breast cancer, . Son had kidney disease, on dialysis, . Another son has had a traumatic injury, unclear of details. SOCIAL HISTORY: She is . is in [place]. Not certain 2 last names of Bernadette as well as Eugenia listed on her chart. The patient does smoke every day. She drinks, but has been too sick recently. REVIEW OF SYSTEMS: The patient denies fever. She denies a sore throat. She is not coughing. She has had weight loss from the summer. She has a difficult time sleeping. She says she has back pain and neck pain. Does have some weakness and achiness. No diarrhea. No appetite. No numbness or tingling of her feet. PHYSICAL EXAMINATION: Vital Signs: Her weight is 129. Blood pressure is 80/40, temperature is 98.3, pulse is 95, sats are 92%. 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 HEENT: Her pupils are equal and reactive to light. She does have a ring of egg setter coloration on her periphery of her irises. Conjunctivae are clear. Pharynx is dry. Mucous membranes are dry. Neck: No anterior cervical lymphadenopathy. No thyromegaly. No JVD. Heart: Regular rate and rhythm without murmurs or bruits. Lungs: Clear to auscultation. Abdomen: Bowel sounds are present. It is soft. It is nontender. No guarding. No rebound. No hepatosplenomegaly appreciated. She does have a scar on her anterior abdomen, which is well healed. Lower Extremities: Slender, thin. Neurologic: She is alert, oriented x3. Reflexes are 1+. The patient can walk, but she is slightly unsteady on her feet. Romberg was not tested due to difficulty with balance. Psychiatric: The patient is alert, oriented x3. She does have a slight slowing to her speech, making it little bit difficult to understand. The patient does appear to be somewhat sad, stressed. LABORATORY DATA: That was done in the clinic showed her sodium to be 131, potassium 2.6, creatinine 3.56, BUN 49, glucose 121. GFR for is 16, alk phos 76, AST high at 92, ALT 33, total bili 0.9, corrected calcium 8.3. Her anion gap is 21, calcium is 8.1, total protein 9.5, glucose 121, magnesium 1.3. White blood cell count 3.5, hemoglobin 14.6, platelet count 83, MCV 88 with 45% segs, 36 lymphocytes, 17 monocytes. IMPRESSION: 1. Acute kidney injury. 2. Severe dehydration. 3. Hypokalemia. 4. Hypomagnesemia. 5. Elevated liver function tests. 6. Hypertension with current hypotension. 7. Thrombocytopenia. 8. Smoker. 9. History of alcohol use. 10.Emotional stressors. PLAN: The patient will be admitted to acute care. We will give IV hydration. We will give IV potassium bolus as well as IV magnesium. We will treat her nausea. We will have Fourchette Sewer see the patient as well due to her stressors going on in life. The patient is admitted to Dr. Kellie Padilla's service. She is code level 1 status. To note, she was not placed on any DVT prophylaxis medications because of concerns with falling that she has had as well as low platelet count and elevated LFTs. We will use compression hosiery to her legs. The patient is agreeable to hospitalization. Does desire code level 1 resuscitation status. To note, Dr. Kellie Padilla was made aware that the patient is being admitted. To note, moderate complexity with the patient's history and with reviewing charts with recent similar abnormalities. Over 50 minutes were spent doing H and P. GM05/29/2020 16:15:59 MODL: 05/29/2020 19:57:54 /[id number]
[2020-05-30] MEDS: NS + KCl 20mEq/L 1,000 ML IV SCH ×3 (06:50→20:46)
[2020-05-30 07:09] LABS: ANION GAP 14.3 mmol/L (10-20)
[2020-05-30] MEDS ORDERED: Potassium Chloride 20 MEQ Tab.ER PO SCH (08:30)
[2020-05-30] MEDS: Pantoprazole 40 MG Vial IVPUSH SCH ×2 (08:32→20:45)
[2020-05-30] MEDS: Cyanocobalamin (Vitamin B12) 1,000 MCG Tab PO SCH (08:32)
[2020-05-30] MEDS: Magnesium Oxide 400 MG Tab PO SCH (08:32)
--- NOTE | 2020-05-30 09:43 | CR ---
[id number] RAD/RAD Chest PA And Lateral EXAM: FRONTAL AND LATERAL CHEST INDICATION: DIMINISHED LUNG SOUNDS COMPARISON: CT of July 12, 2018. DISCUSSION: Hyperinflation compatible COPD. Mild to moderate interstitial and airspace opacities in both lung bases suspicious for infection. IMPRESSION: 1. Mild to moderate bibasilar interstitial and airspace opacities, favor infiltrates. Continued follow-up is suggested to exclude other underlying pathology. Gee Trevizo MD 05/30/20 0941 Thank you for allowing us to participate in the care of your patient.
[2020-05-30] MEDS: Potassium Chloride 10% 20 MEQ/15 ML Soln 15 ML UD Cup PO SCH (09:45)
--- NOTE | 2020-05-30 10:35 | PN ---
Progress Note for LEONORA MENDEZ Date: 05/30/2020 Room #: VM.206 SUBJECTIVE: This is hospital day #2 on a 64-year-old admitted with dizziness and dehydration leading to acute renal failure. The patient's blood pressures were in the 80 systolic. She was admitted and placed on IV fluids. She is feeling a little better today, less achy, but still not strong enough to go home. She has had a cough ever since she picked up a cold in [place] when she was down there about a week ago. No sore throat or fevers. The patient did eat 100% of snack last night, 50% of dinner, had 2600 in fluid and only 300 out. She otherwise has not had any abdominal pain, just felt achy in her legs. Her magnesium was 1.3. It is normal today and that achiness went away. The patient does admit to drinking in the last week, but she states not very much. She is not short of breath. OBJECTIVE: Vital Signs: Her temperature is 98.2, her pulse is 98, blood pressure 156/91, previous has all been normal. Respiratory rate 17 and O2 of 93% on room air. General: She is in no acute distress. Heart: Regular rate and rhythm. S1 and S2 without murmur. Lungs: Lung sounds are clear to auscultation bilaterally without crackles or wheezes on the left, but there are rhonchi noted in the right base. Abdomen: Positive bowel sounds. Soft and nontender. Extremities: Warm and dry. No edema. Mental Status: She is alert. She is orientated x3. LABORATORY DATA: Lab work today did show her to have a white count 3.3, hemoglobin 13.6, platelets of 76 which is similar to her readings yesterday for them, they were 83. Her creatinine is down to 2.2 from over 3. Sodium 132, potassium 3.3, chloride 96, bicarb 25, BUN 49, glucose 112, calcium 7.9, magnesium 2.1, bilirubin 0.5, AST 70, ALT 32, alkaline phosphatase 86, albumin 2.9. Lipase normal. ASSESSMENT: 1. Acute renal failure, likely prerenal due to volume depletion and dehydration. The patient is improving with IV fluids. We will continue at 150 an hour and repeat lab work tomorrow. We will also send off a UA. 2. Hypokalemia, replaced IV. We will start oral today. 3. Muscle aches, possibly due to electrolyte disturbance. We will check a CK level as rhabdomyolysis could have contributed to acute renal failure. 4. History of alcohol use. The patient denies any current excessive use. 5. Thrombocytopenia, chronic. The patient has had B12 levels normal in the past. She is not on any heparin. We will continue antiembolic devices for deep venous thrombosis prophylaxis. 6. Moderate malnutrition, probably due to poor oral intake. 7. Hyponatremia due to dehydration. 8. Essential hypertension. She is on Cardizem normally. She has not been taking it. Her blood pressure has just come up this morning. We will continue to monitor and restart if indicated. 9. History of pneumonias. The patient has a cough. We will get a chest x- ray. We will also do a COVID testing. 10.History of emphysema and smoking. We will get her on nicotine patch. 11.History of depression, possibly bipolar. The patient's moods are stable today. 12. COVID 19 infection unknown source patient is not hypoxic, start vitamins decision made not to transfer as it wasn't her primary reason for hospitalization and she will likely go home tomorrow. PLAN: The patient will continue acute cares with IV fluids and electrolyte replacement. We will repeat lab work tomorrow to monitor her liver enzymes. MKA: 05/30/2020 09:40:16 MODL: 05/30/2020 10:27:07 /[id number] GINGER
[2020-05-30] MEDS: Nicotine 14 MG/24 Hr Patch TRDERM SCH (11:01)
[2020-05-30] MEDS: cefTRIAXone 1 GM Vial IVPUSH SCH (13:13)
--- NOTE | 2020-05-30 15:04 | PCM.SN.2 ---
- Free Text/Narrative Note: Patient positive for COVID and pneumonia by CXR. Video visit this afternoon discussed with patient she hasn't been around anyone in the last week in [place]. Only symptoms is a cough the dizziness and "bone aches" she attributed to being dehydrated like she had before this summer. No loss of taste or smell, no sore throat or fever. No GI symptoms. She was in [place] from 05/03 through 05/23 she thinks that is when she came home. Still off oxygen and potentially will go home tomorrow so no plan for transfer at this time.
[2020-05-30] MEDS: Cholecalciferol (Vitamin D3) 10 MCG Tab PO SCH (15:49)
[2020-05-30] MEDS: Zinc (Zinc Gluconate) 50 MG Tab PO SCH (15:49)
[2020-05-30] MEDS: Ascorbic Acid 500 MG Tab PO SCH ×2 (15:49→20:44)
[2020-05-31] MEDS: NS + KCl 20mEq/L 1,000 ML IV SCH (03:26)
[2020-05-31 07:01] LABS: ANION GAP 12.8 mmol/L (10-20)
[2020-05-31] MEDS: Pantoprazole 40 MG Vial IVPUSH SCH (07:58)
[2020-05-31] MEDS: cefTRIAXone 1 GM Vial IVPUSH SCH (07:58)
[2020-05-31] MEDS: Potassium Chloride 10% 20 MEQ/15 ML Soln 15 ML UD Cup PO SCH (07:58)
[2020-05-31] MEDS: Ascorbic Acid 500 MG Tab PO SCH (07:59)
[2020-05-31] MEDS: Magnesium Oxide 400 MG Tab PO SCH (07:59)
[2020-05-31] MEDS: Zinc (Zinc Gluconate) 50 MG Tab PO SCH (07:59)
[2020-05-31] MEDS: Cyanocobalamin (Vitamin B12) 1,000 MCG Tab PO SCH (07:59)
[2020-05-31] MEDS: Cholecalciferol (Vitamin D3) 10 MCG Tab PO SCH (07:59)
[2020-05-31] MEDS: Nicotine 14 MG/24 Hr Patch TRDERM SCH (08:00)
[2020-05-31] MEDS ORDERED: Diltiazem 120 MG Cap.CD PO ONE (09:00)
--- NOTE | 2020-05-31 10:08 | DISCH ---
PRIMARY DISCHARGE DIAGNOSES: 1. Acute renal failure due to volume depletion and dehydration. 2. Coronavirus disease 19 infection. Duration of illness unknown, but the patient reported a cold last week. She is not short of breath. She is only having a cough. 3. Severe hypokalemia and hypomagnesemia, replaced both intravenous and orally. 4. Elevated liver function tests with some probable cirrhosis based on ultrasounds in the past. The patient has a history of alcohol abuse. Her AST improved down to 50 on discharge. 5. Moderate malnutrition. Albumin of 2.6. 6. Thrombocytopenia, possibly due to liver disease. 7. Bilateral pneumonia, likely due to coronavirus disease 19 infection. She got Rocephin here in the hospital for 2 days, but no antibiotics will be ordered on discharge. She had no fevers. Her lungs were clear. It was not felt to be a bacterial infection. 8. Hyponatremia probably due to dehydration, improving. Sodium up to 133 on discharge. 9. Essential hypertension, not well controlled. She was hypotensive on admit when she was dehydrated. We will restart her Cardizem today. 10.History of emphysema and active smoking. 11.History of depression and possibly bipolar. REASON FOR ADMISSION: On the date of admission, this 64-year-old female came to the clinic. She was feeling so dizzy she almost passed out a couple of times. She was found to have a creatinine over 3, potassium of 2.6. She was admitted and given IV fluids. Her creatinine by that evening had already improved down to 3.3, then 2.2 the next morning, then 1.3 today. She was noted to have a cough on her 2nd hospital day and some rhonchi in the right lower lung. Chest x- ray was obtained, which showed the bibasilar pneumonia. COVID testing was also requested, which did show her to have COVID-19 infection. The patient was started on zinc, vitamin C, and vitamin D. She is also known to have a low calcium level and is supposed to be on vitamin D at home, but had not been taking any of her pills and vitamins. The patient had no respiratory distress. She was not requiring any oxygen. She was never febrile. Therefore, decision was made not to transfer her to [place] and continue IV fluids and likely discharge her home today. The patient is ready and willing to go home. She will be followed by the Public Health. We already discussed with nurse, Patricia. We will try to get her a monitoring box from the clinic with thermometer and pulse oximeter. The patient was given a nicotine patch while inpatient, but states she plans to smoke when she goes home. She was encouraged to quit. She was also encouraged to avoid alcohol. OBJECTIVE: Vital Signs: Her temperature on discharge was 98.3, pulse 88, blood pressure 139/94, respiratory rate 16, and O2 of 96% on room air. General: She is in no acute distress. Heart: Regular rate and rhythm. S1, S2 without murmur. Lungs: Sounds are clear to auscultation bilaterally without crackles or wheezes. Abdomen: Has mild distention, possible mild ascites, but nontender. Extremities: Warm and dry. No edema. Mental Status: She is alert. She is oriented x3. I saw her up walking in her room without oxygen, speaking in full sentences and doing well. DISCHARGE PLANS AND INSTRUCTIONS: She will follow up in the clinic with Dr. Padilla on 06/14. She will have CMP, CBC, and magnesium level at that time. She will resume her diltiazem 120 daily. She should take the vitamin D at least 2000 units daily, vitamin C and zinc for at least the next 2 weeks, but vitamin D indefinitely. She should restart her magnesium pills. She will be on potassium 20 mEq daily for least the next month. Greater than 30 minutes spent on the discharge process. MKA: 05/31/2020 09:03:04 MODL: 05/31/2020 09:59:35 /[id number]
== END 2020-05-31 09:50 | disposition home or self-care (01) | DRG 682 ==
LOC: VM.MS 15:12
PROVIDERS: ADMIT Family Medicine; ATTEND Internal Medicine
DX: N17.9 Acute kidney failure, unspecified (principal); U07.1 COVID-19; J12.89 Other viral pneumonia; E44.0 Moderate protein-calorie malnutrition; E87.1 Hypo-osmolality and hyponatremia; E86.0 Dehydration; E86.9 Volume depletion, unspecified; E87.6 Hypokalemia; E83.42 Hypomagnesemia; K74.60 Unspecified cirrhosis of liver; D69.6 Thrombocytopenia, unspecified; I10 Essential (primary) hypertension; J43.9 Emphysema, unspecified; F31.9 Bipolar disorder, unspecified; F41.8 Other specified anxiety disorders; F17.200 Nicotine dependence, unspecified, uncomplicated; Z79.899 Other long term (current) drug therapy; Z88.5 Allergy status to narcotic agent; Z68.22 Body mass index [BMI] 22.0-22.9, adult
CPT/HCPCS: 36415; 71046; 80048; 80053; 81001; 82550; 83690; 83735; 85025; 93005; 97161-GP; A9270-GY; C9113; J0696; J3475; J3480; U0002

== ENCOUNTER 2020-09-28 10:31 | Emergency (ER) | payer MEDICARE, MEDICAID ==
[2020-09-28] MEDS ORDERED: Sodium Chloride 0.9% 10 ML Syringe FLUSH PRN (10:35)
[2020-09-28] MEDS: Ondansetron 4 MG/2 ML SDV IVPUSH ONE (10:53)
[2020-09-28] MEDS: Sodium Chloride 0.9% 1,000 ML IV ONE (10:53)
[2020-09-28] MEDS: diphenhydrAMINE 50 MG/ML SDV IVPUSH ONE (10:56)
[2020-09-28] MEDS: Famotidine 20 MG/2 ML SDV IVPUSH ONE (10:57)
--- NOTE | 2020-09-28 11:00 | EDM.PDOC ---
ED HPI GENERAL MEDICAL PROBLEM - General Chief Complaint: Abdominal Pain Stated Complaint: PAIN Time Seen by Provider: 09/28/20 10:33 Source of Information: Reports: Patient, EMS - History of Present Illness INITIAL COMMENTS - FREE TEXT/NARRATIVE: Eugenia is a 65 y/o female who is brought to the ER for several complaints. She initially stated she was SOB, but then her complaints focused more around abd ominal pain. She reports having abdominal pain for the last few days and also decreased appetite and nausea and vomiting since Friday. She reports that yesterday she has 3 dark black stools. Abdominal Pain Score (Numeric/FACES): 6 - Related Data Allergies Allergy/AdvReac Type Severity Reaction Status Date / Time hydrocodone AdvReac Nausea and Verified 09/28/20 10:38 Vomiting Home Meds: Home Meds Cyanocobalamin (Vitamin B-12) [B-12] 1,000 mcg PO DAILY 04/30/18 [History] Magnesium Oxide 400 mg PO DAILY 04/30/18 [History] Albuterol [Ventolin HFA] 2 puff INH Q4H PRN 12/08/18 [History] Doxepin [SINEquan] 50 mg PO BEDTIME PRN 02/01/20 [History] Meclizine [Antivert] 25 mg PO Q4HR PRN 02/01/20 [History] Acetaminophen [Tylenol] 650 mg PO Q4H PRN tablet 05/31/20 [Rx] Ascorbic Acid [Vitamin C] 500 mg PO BID #28 tablet 05/31/20 [Rx] Cholecalciferol (Vitamin D3) [Vitamin D3] 20 mcg PO DAILY #30 tablet 05/31/20 [Rx] Diltiazem [Cardizem CD] 120 mg PO DAILY #90 cap.cd 05/31/20 [Rx] Potassium Chloride [Potassium Chloride Solution] 20 meq PO DAILY #30 cup 05/31/20 [Rx] Zinc Gluconate [Zinc] 50 mg PO DAILY tablet 05/31/20 [Rx] Past Medical History HEENT History: Reports: Cataract Cardiovascular History: Reports: Hypertension Other Respiratory History: pneumonia. emphysema Gastrointestinal History: Reports: Bowel Obstruction, Colon Polyp Other Gastrointestinal History: sigmoid volvulus Genitourinary History: Reports: Acute Renal Failure Musculoskeletal History: Reports: Arthritis Other Neuro History: neurodermatitis Psychiatric History: Reports: Anxiety, Depression Other Psychiatric History: alcohol dependence. smoking Other Hematologic History: hypercalcemia. hypomagnesium. B12 deficiency. thrombocytopenia - Infectious Disease History Infectious Disease History: Reports: Novel Coronavirus - Past Surgical History HEENT Surgical History: Reports: Cataract Surgery, Oral Surgery GI Surgical History: Reports: Colonoscopy Other GI Surgeries/Procedures: ventral hernia repair Social & Family History - Family History Family Medical History: No Pertinent Family History - Tobacco Use Tobacco Use Status *Q: Unknown Ever Used Tobacco - Caffeine Use Caffeine Use: Reports: None Review of Systems - Review of Systems Review Of Systems: See Below Constitutional: Reports: Weakness Eyes: Reports: No Symptoms Ears: Reports: No Symptoms Nose: Reports: No Symptoms Mouth/Throat: Reports: No Symptoms Respiratory: Reports: Shortness of Breath Cardiovascular: Reports: No Symptoms GI/Abdominal: Reports: Abdominal Pain, Decreased Appetite, Nausea, Vomiting, Other (Black stools) Genitourinary: Reports: No Symptoms Musculoskeletal: Reports: No Symptoms Skin: Reports: No Symptoms Neurological: Reports: No Symptoms Psychiatric: Reports: No Symptoms ED EXAM, GENERAL - Physical Exam Exam: See Below General Appearance: Alert, WD/WN, No Apparent Distress (Elderly female.) Eye Exam: Bilateral Eye: PERRL Ears: Normal External Exam, Hearing Grossly Normal, Other (Bilateral TMs blocked with dark cerumen) Nose: Normal Inspection, Normal Mucosa Throat/Mouth: Normal Inspection, Normal Gums, Normal Voice, Other (Edentulous) Head: Atraumatic, Normocephalic Neck: Normal Inspection, Supple, Non-Tender Respiratory/Chest: No Respiratory Distress, Lungs Clear, Normal Breath Sounds, Chest Non-Tender Cardiovascular: Normal Peripheral Pulses, Regular Rate, Rhythm, No Murmur GI/Abdominal: Normal Bowel Sounds, No Distention, Tender (RUQ/LUQ) (Female) Exam: Deferred Back Exam: Normal Inspection Extremities: Normal Inspection, Normal Range of Motion, Normal Capillary Refill Neurological: Alert, Oriented, CN II-XII Intact, Normal Cognition Psychiatric: Flat Affect Skin Exam: Warm, Dry, Intact, Normal Color Lymphatic: No Adenopathy #1 Interpretation EKG Date: 09/28/20 Time: 11:11 Rhythm: Other (Sinus Tachycardia) Rate (Beats/Min): 103 P-Wave: Present QRS: Normal ST-T: Normal QT: Prolonged Course - Vital Signs Text/Narrative:: 1033 The patient was seen by the DESIGN ENGINEER. Labs, EKG ordered. She was given a liter of NS, Zofran 4mg IVP, Pepcid 20mg IVP, and Protonix 80mg IVP. Hemocult negative. 1130 Some labs resulted. CBC: Hgb=10.0, Hct=28.6; CMP: K=2.6, Tsycoe=262, BUN=37, Kindergarten Tutor=1.4, Hwntfho=226; Plysrxi=323, Puqxcy=2980, CRP=18.6, TBili=4.9. Will start replacing potassium and magnesium prior to probable transport to tertiary care center. CT ordered. 1215 CT results pending. Reports 06/10 abdominal pain. Fentanyl 50mcg IVP ordered. 1235 CT results reviewed. Case presented to [facility] to accept the patient for transfer. 1259 Dr Esparza accepted the patient for direct admission to [facility]. Will transport by ground ambulance when room assignment given. Patient kept NPO. IV fluids and electrolyte replacement continues. She remained stable until leaving the ER here at [place]. Last Recorded V/S: Last Vital Signs Temp 36.7 C 09/28/20 10:31 Pulse 105 H 09/28/20 12:45 Resp 18 09/28/20 12:45 BP 127/83 09/28/20 12:45 Pulse Ox 97 09/28/20 12:45 - Orders/Labs/Meds Orders: Active Orders 24 hr Category Date Time Status EKG Documentation Completion [RC] STAT Care 09/28/20 10:35 Active UA RFX FERNANDO AND CULT IF INDIC [URIN] Stat Lab 09/28/20 10:35 Ordered Magnesium Sulfate/Water [Magnesium Sulfate in Water 4 Med 09/28/20 12:15 Active GM/100 ML] 100 ml IV ONETIME Pantoprazole [ProTONIX IV] 80 mg Med 09/28/20 10:45 Active Sodium Chloride 0.9% [Normal Saline] 250 ml IV Q10H Potassium Chloride Riders [KCL in Water 20 MEQ/50 ML] Med 09/28/20 11:30 Active 20 meq Premix Bag 1 bag IV Q2H Sodium Chloride 0.9% [Saline Flush] Med 09/28/20 10:35 Active 10 ml FLUSH ASDIRECTED PRN Saline Lock Insert [OM.PC] Stat Oth 09/28/20 10:35 Ordered Medication Orders Pantoprazole Sodium 80 mg/ (Sodium Chloride) 250 mls @ 25 mls/hr IV Q10H [facility] Last Admin: 09/28/20 11:01 Dose: 25 mls/hr Documented by: SARKIS Potassium Chloride 20 meq/ (Premix) 50 mls @ 50 mls/hr IV Q2H ARIA Stop: 09/28/20 16:29 Last Admin: 09/28/20 12:12 Dose: 50 mls/hr Documented by: SARKIS Magnesium Sulfate (Magnesium Sulfate In Water 4 Gm/100 Ml) 100 mls @ 50 mls/hr IV ONETIME ONE Stop: 09/28/20 14:14 Last Admin: 09/28/20 12:12 Dose: 50 mls/hr Documented by: SARKIS Sodium Chloride (Saline Flush) 10 ml FLUSH ASDIRECTED PRN PRN Reason: Keep Vein Open Labs: Laboratory Tests 09/28/20 09/28/20 Range/Units 10:52 10:52 WBC 5.6 (4.0-10.0) x10^3/uL RBC 3.15 L (4.00-5.50) x10^6/uL Hgb 10.0 L D (12.0-16.0) g/dL Hct 28.6 L (33.0-47.0) % MCV 90.8 D (78.0-93.0) fL MCH 31.7 (26.0-32.0) pg MCHC 35.0 (32.0-36.0) g/dL RDW Coeff of Heraclio 16.2 H (10.0-15.0) % Plt Count 129 L (130-400) x10^3/uL Neut % (Auto) 70.7 (50.0-80.0) % Lymph % (Auto) 12.2 L (25.0-50.0) % [place]orne % (Auto) 16.5 H (2.0-11.0) % Eos % (Auto) 0.4 (0.0-4.0) % Baso % (Auto) 0.2 (0.2-1.2) % Sodium 134 L (136-145) mmol/L Potassium 2.6 L* (3.5-5.1) mmol/L Chloride 90 L (98-107) mmol/L Carbon Dioxide 28 (21-32) mmol/L Anion Gap 18.6 H (5-15) mmol/L BUN 37 H (7-18) mg/dL Creatinine 1.4 H (0.55-1.02) mg/dL Est Cr Clr Drug Dosing TNP Estimated GFR (MDRD) 46 Glucose 139 H (74-106) mg/dL Calcium 9.2 (8.5-10.1) mg/dL Corrected Calcium 9.92 (8.5-10.1) mg/dL Magnesium 0.9 L* (1.8-2.4) mg/dL Total Bilirubin 4.9 H (0.2-1.0) mg/dL AST 242 H (15-37) U/L ALT 54 (14-59) U/L Alkaline Phosphatase 178 H (46-116) U/L Troponin I < 0.017 (<=0.056) ng/mL C-Reactive Protein 18.6 H (<=0.9) mg/dL Total Protein 9.1 H (6.4-8.2) g/dL Albumin 3.1 L (3.4-5.0) g/dL Globulin 6.0 g/dL Albumin/Globulin Ratio 0.52 Amylase 294 H (25-115) U/L Lipase 3249 H (73-393) U/L Ethyl Alcohol < 3 (0-3) mg/dL Meds: Medications Generic Name Dose Route Start Last Admin Trade Name Freq PRN Reason Stop Dose Admin Pantoprazole Sodium 80 mg/ 250 mls @ 25 mls/hr 09/28/20 10:45 09/28/20 11:01 Sodium Chloride IV 25 mls/hr Q10H ARIA Administration Potassium Chloride 20 meq/ 50 mls @ 50 mls/hr 09/28/20 11:30 09/28/20 12:12 Premix IV 09/28/20 16:29 50 mls/hr Q2H ARIA Administration Magnesium Sulfate 100 mls @ 50 mls/hr 09/28/20 12:15 09/28/20 12:12 Magnesium Sulfate In Water 4 Gm/100 Ml IV 09/28/20 14:14 50 mls/hr ONETIME ONE Administration Sodium Chloride 10 ml 09/28/20 10:35 Saline Flush FLUSH ASDIRECTED PRN Keep Vein Open Discontinued Medications Generic Name Dose Route Start Last Admin Trade Name Mali PRN Reason Stop Dose Admin Diphenhydramine HCl 25 mg 09/28/20 10:37 09/28/20 10:56 Benadryl IVPUSH 09/28/20 10:38 25 mg ONETIME ONE Administration Famotidine 20 mg 09/28/20 10:37 09/28/20 10:57 Pepcid IVPUSH 09/28/20 10:38 20 mg ONETIME ONE Administration Fentanyl 50 mcg 09/28/20 12:11 09/28/20 12:49 Fentanyl IVPUSH 09/28/20 12:12 50 mcg ONETIME ONE Administration Sodium Chloride 1,000 mls @ 999 mls/hr 09/28/20 10:36 09/28/20 10:53 Normal Saline IV 09/28/20 11:36 999 mls/hr ONETIME ONE Administration Magnesium Sulfate 4 gm in 100 mls @ 50 mls/hr 09/28/20 11:45 Magnesium Sulfate In Water 20 Gm/500 Ml IV ONETIME ARIA Iopamidol 100 ml 09/28/20 12:08 09/28/20 12:08 Isovue-300 (61%) IVPUSH 09/28/20 12:09 100 ml ONETIME ONE Administration Ondansetron HCl 4 mg 09/28/20 10:36 09/28/20 10:53 Zofran IVPUSH 09/28/20 10:37 4 mg ONETIME ONE Administration - Radiology Interpretation Free Text/Narrative:: CT Abd/Pelvis W=note distended gallbladder, fatty liver (See final report) Departure - Departure Time of Disposition: 12:59 Disposition: DC/Tfer W/I Hosp To Swing 61 Clinical Impression: Gallbladder problem, Electrolyte imbalance, Hx of cirrhosis Pancreatitis Qualifiers: Chronicity: acute Pancreatitis type: unspecified pancreatitis type Acute pancreatitis complication: unspecified Qualified Code(s): K85.90 - Acute pancreatitis without necrosis or infection, unspecified - Discharge Information Referrals: Kellie Padilla DO [Primary Care Provider] - Forms: ED Department Discharge, Interfacility Transfer [facility] Sepsis Event Note (ED) - Evaluation Sepsis Screening Result: No Definite Risk - Focused Exam Vital Signs: Vital Signs Temp Pulse Resp BP Pulse Ox 09/28/20 12:45 105 H 18 127/83 97 09/28/20 11:31 102 H 145/91 H 09/28/20 10:31 36.7 C 109 H 20 145/91 H 99 - My Orders Last 24 Hours: My Active Orders 09/28/20 10:35 EKG Documentation Completion [RC] STAT UA RFX FERNANDO AND CULT IF INDIC [URIN] Stat Sodium Chloride 0.9% [Saline Flush] 10 ml FLUSH ASDIRECTED PRN Saline Lock Insert [OM.PC] Stat 09/28/20 10:45 Pantoprazole [ProTONIX IV] 80 mg Sodium Chloride 0.9% [Normal Saline] 250 ml IV Q10H 09/28/20 11:30 Potassium Chloride Riders [KCL in Water 20 MEQ/50 ML] 20 meq Premix Bag 1 bag IV Q2H 09/28/20 12:15 Magnesium Sulfate/Water [Magnesium Sulfate in Water 4 GM/100 ML] 100 ml IV ONETIME - Assessment/Plan Last 24 Hours: My Active Orders 09/28/20 10:35 EKG Documentation Completion [RC] STAT UA RFX FERNANDO AND CULT IF INDIC [URIN] Stat Sodium Chloride 0.9% [Saline Flush] 10 ml FLUSH ASDIRECTED PRN Saline Lock Insert [OM.PC] Stat 09/28/20 10:45 Pantoprazole [ProTONIX IV] 80 mg Sodium Chloride 0.9% [Normal Saline] 250 ml IV Q10H 09/28/20 11:30 Potassium Chloride Riders [KCL in Water 20 MEQ/50 ML] 20 meq Premix Bag 1 bag IV Q2H 09/28/20 12:15 Magnesium Sulfate/Water [Magnesium Sulfate in Water 4 GM/100 ML] 100 ml IV ONETIME Assessment:: 1)Acute Pancreatitis 2)Gallbladder Abnormality 3)Electrolyte Imbalance 4)Renal Insufficiency 5)Hx of Cirrhosis 6)Essential HTN Plan: -Transfer to [facility] to Dr Esparza for Direct Admission
[2020-09-28 11:23] LABS: SODIUM,NA 134 mmol/L (136-145)
[2020-09-28 11:24] LABS: ANION GAP 18.6 mmol/L (5-15); CHLORIDE,CL 90 mmol/L (98-107)
[2020-09-28] MEDS ORDERED: Magnesium Sulfate/Water 4 GM/100 ML BAG IV SCH (11:45)
[2020-09-28] MEDS: Iopamidol 612 MG/ML 100 ML Bottle IVPUSH ONE (12:08)
[2020-09-28] MEDS: Potassium Chloride Riders 20 MEQ in Premix Bag 1 BAG IV SCH (12:12)
[2020-09-28] MEDS: Magnesium Sulfate/Water 100 ML IV ONE (12:12)
--- NOTE | 2020-09-28 12:34 | CT ---
[id number] CT/CT Abdomen Pelvis W IV EXAM: CT Abdomen Pelvis W IV CLINICAL DATA: ABDOMINAL PAIN COMPARISON: CORRELATION IS MADE WITH JULY 12, 2018 FINDINGS: The gallbladder is distended There is no edema of the gallbladder wall. There may be minimal edema surrounding the gallbladder There is a fatty liver The pancreas is diffusely prominent There is no pancreatic mass or pancreatitis seen The pelvis shows no mass or adenopathy There are residual fibroid changes of the uterus The appendix appears normal. The aorta, adrenals, kidneys and spleen are also unremarkable The portal mesenteric vessels are patent IMPRESSION: DISTENDED GALLBLADDER FATTY LIVER CONSIDER GALLBLADDER ULTRASOUND AND BILIARY SCINTIGRAPHY Usman Kimball MD 09/28/20 9001 Thank you for allowing us to participate in the care of your patient.
[2020-09-28] MEDS: fentaNYL 50 MCG/ML SDV IVPUSH ONE (12:49)
== END 2020-09-28 13:55 | disposition short-term general hospital (02) ==
LOC: VM.ED 10:31
DX: K85.90 Acute pancreatitis without necrosis or infection, unspecified (principal); E87.8 Other disorders of electrolyte and fluid balance, not elsewhere classified; I10 Essential (primary) hypertension; K82.8 Other specified diseases of gallbladder; N28.9 Disorder of kidney and ureter, unspecified; H61.23 Impacted cerumen, bilateral; F17.200 Nicotine dependence, unspecified, uncomplicated; Z87.19 Personal history of other diseases of the digestive system; Z88.5 Allergy status to narcotic agent; Z79.899 Other long term (current) drug therapy
CPT/HCPCS: 36415; 74177; 80053; 80307; 81001; 82150; 83690; 83735; 84484; 85025; 86140; 93005; 93010; 96365; 96366; 96368; 96375; 99284; 99285-25; C9113; J1200; J2405; J3010; J3475; J3480; J3490; J7030; J7050; Q9967

== ENCOUNTER 2021-06-11 15:53 | Inpatient (IN) | payer MEDICARE, MEDICAID ==
[2021-06-11] MEDS ORDERED: Potassium Chloride 10 MEQ Tab.ER PO SCH (16:14)
[2021-06-11] MEDS ORDERED: Albuterol/Ipratropium 3.0-0.5 MG/3 ML Neb Soln NEB PRN (16:16)
[2021-06-11] MEDS ORDERED: Ondansetron 4 MG/2 ML SDV IV PRN (16:16)
[2021-06-11] MEDS ORDERED: oxyCODONE 5 MG Tab PO PRN (16:16)
[2021-06-11] MEDS ORDERED: Potassium Chloride Riders 20 MEQ in Premix Bag 1 BAG IV ONE (16:30)
[2021-06-11] MEDS: Sodium Chloride 0.9% with KCl 1,000 ML IV SCH (16:43)
[2021-06-11] MEDS: Nicotine 14 MG/24 Hr Patch TRDERM SCH (16:44)
[2021-06-11 16:56] LABS: CHLORIDE,CL 97 mmol/L (98-107); SODIUM,NA 135 mmol/L (136-145)
[2021-06-11 16:58] LABS: ANION GAP 11.8 mmol/L (5-15)
[2021-06-11] MEDS: Potassium Chloride 10% 20 MEQ/15 ML Soln 15 ML UD Cup PO SCH (17:13)
[2021-06-11] MEDS ORDERED: Magnesium Sulfate/Water 4 GM in Premix Bag 1 BAG IV ONE (17:20)
--- NOTE | 2021-06-11 17:45 | CR ---
[id number] RAD/RAD Abd Flat and Upright 2V EXAM: RAD Abd Flat and Upright 2V INDICATION: VOMITING. COMPARISON: None. DISCUSSION: Unobstructed bowel gas pattern. No radiographically evident pneumoperitoneum. IMPRESSION: No acute findings in the abdomen. Roberto Aldana DO 06/11/21 1744 Thank you for allowing us to participate in the care of your patient.
[2021-06-11] MEDS: Magnesium Oxide 400 MG Tab PO SCH (18:37)
[2021-06-11] MEDS ORDERED: Potassium Chloride 10% 20 MEQ/15 ML Soln 15 ML UD Cup PO ONE (20:00)
[2021-06-11] MEDS ORDERED: Potassium Bicarbonate/Cit Ac 10 MEQ Effervescent Tab PO ONE (20:30)
[2021-06-11] MEDS: Acetaminophen 325 MG Tab PO PRN (21:09)
[2021-06-11] MEDS: Omeprazole 20 MG Cap.CR PO SCH (21:51)
--- NOTE | 2021-06-12 00:46 | HP ---
CHIEF COMPLAINT: Abdominal pain from coughing, weakness, vomiting for the past week. HISTORY OF PRESENT ILLNESS: She was not taking any of her regular pills, but did recently restart on B12. She has a history of liver disease and previous drinking, but she denies that she was drinking any alcohol. She has been dizzy and losing weight. The patient has not been short of breath. She continues to smoke. She has not had any fever or chills. She actually had COVID last year. She has not been in since October and has lost 10 pounds. She is not taking any of her blood pressure pills, but I had taken her off them and her blood pressure is okay in the clinic. She is supposed to be on potassium pills, but has not been taking them, so she had a potassium of 2.9 in the clinic. Her white count was normal. Her COVID test was negative. Hemoglobin was 11.5. She has not had any black or bloody stools. No diarrhea. No bloody vomiting other than when she had a little bit of a bloody nose one day. Her platelets were also newly found to be low at 37 and they were previously normal. ALLERGIES: Include codeine, hydrocodone, and tramadol; nausea, itching, vomiting. MEDICATIONS: Medication list is reviewed, but again she was not taking the ursodiol 250 two times a day, potassium 20 mEq daily, and magnesium 400 daily. PAST MEDICAL HISTORY: Includes previous admission for acute renal failure due to dehydration, creatinine up to 3.5 back in May 2020 when she had COVID; essential hypertension; B12 deficiency; anxiety; arthritis; previous GI bleeding from a Juliet-Ramon tear and portal hypertensive gastropathy in September 2020; history of ventral hernia repair; previous hospital-acquired pneumonia; colon polyps; depression; emphysema, but not on inhalers; previous small bowel obstruction; previous pancreatitis; sigmoid volvulus with sigmoidectomy and ileostomy in 2016 in [place], but it was reversed; previous history of thrombocytopenia in the past; and uncomplicated alcohol dependence. PAST SURGICAL HISTORY: As stated above, she has had those two colon surgeries and ventral hernia repair. FAMILY HISTORY: Both parents are . They both had hypertension. Mother had scleroderma. She has a son who had an accident in a longterm in [place]. SOCIAL HISTORY: Substance: She is a smoker, every day, at least a quarter pack. She says no current alcohol. No IV drugs. She is single. She is on disability for depression. She has many other children, some in [place], some in [place]. REVIEW OF SYSTEMS: General: Again, she has had weight changes, but no fever, no chills. HEENT: No sore throat. No trouble swallowing. Cardiac: No chest pain. No palpitations. Respiratory: She has had the cough, but has not been short of breath. Abdomen: She has had nausea, vomiting, but no diarrhea or constipation. She has had stomach discomfort, but she does not feel it is severe. She thinks it is from coughing. Otherwise, all systems reviewed and found to be negative unless otherwise stated. PHYSICAL EXAMINATION: Vital Signs: On hospital admission, her temperature is 98.1, pulse 101, blood pressure 153/92, respiratory rate 16, and O2 of 93 on room air. General: She is in no acute distress. Heart: Regular rate and rhythm. S1, S2 without murmur. Lungs: Sounds are clear to auscultation bilaterally without crackles or wheezes. Abdomen: Has positive bowel sounds. It is soft, nondistended. No ascites present. No rebound or guarding. Extremities: Warm and dry. No edema. Skin: She is , but I did not appreciate any bruising or rashes. Eyes: She has no scleral icterus. She has some arcus senilis, but her pupils are equal, round, and reactive to light. Mental Status: She is alert. She is orientated x3. Patient given IV Zofran in the clinic and a liter of saline prior to her potassium coming back low and then decision was made to admit her for further electrolyte replacement. LABORATORY DATA: Her chest x-ray actually improved from her last view, some subtle scarring in the left base. Abdominal x-ray; nonspecific bowel gas pattern, no obstruction. White count normal at 6.6, hemoglobin 11.5, platelets 37. Sodium 131, glucose 97, BUN 11, creatinine 1.1, potassium 2.9, chloride 91, bicarb 26, calcium 9.2. Lipase 30, albumin 3. Magnesium 1. Bilirubin 2.6, AST 78, ALT 19, alkaline phosphatase 100. INR 1.2. ASSESSMENT AND PLAN: 1. Hypokalemia, likely from vomiting. We will replace IV and orally. 2. Dizziness, likely due to volume depletion. She has already received IV fluids. I will continue normal saline with 20 of KCl. 3. History of gastrointestinal bleeding. We will put her empirically on an oral PPI. 4. History of alcohol abuse. She denies any current use. We will monitor her closely for any withdrawals. 5. Chronic liver disease, probably cirrhosis. We will restart her ursodiol, monitor her bilirubin. She is not having any acute signs of alcoholic hepatitis. 6. Severe thrombocytopenia without bleeding. We will monitor platelets here. 7. Abdominal discomfort. No reason to pursue a CT scan. We will have her on Tylenol p.r.n. for pain. and Oxycodone for severe pain. 8. Cough with underlying emphysema. We will have her on p.r.n. nebs. 9. For deep venous thrombosis prophylaxis, the patient not started on any heparin or Lovenox due to low platelets. If she does not go home tomorrow, we will place her on SCDs. 10.For smoking, I have her on a nicotine patch. PLAN: Repeat all lab work in the morning. She is on cardiac monitoring for the hypokalemia and a UA is pending for her abdominal discomfort. Her magnesium was also severely low at 1, so I will replace that IV and orally. Continue acute cares. Full code. MARLINA: 06/11/2021 17:54:34 MODL: 06/12/2021 00:41:32 /[id number] MTDD
[2021-06-12] MEDS: Sodium Chloride 0.9% with KCl 1,000 ML IV SCH (00:58)
[2021-06-12 07:32] LABS: CHLORIDE,CL 106 mmol/L (98-107); SODIUM,NA 137 mmol/L (136-145)
[2021-06-12] MEDS: Nicotine 14 MG/24 Hr Patch TRDERM SCH (08:24)
[2021-06-12] MEDS: Omeprazole 20 MG Cap.CR PO SCH (08:25)
[2021-06-12] MEDS: Magnesium Oxide 400 MG Tab PO SCH (08:25)
[2021-06-12] MEDS: Acetaminophen 325 MG Tab PO PRN (08:25)
[2021-06-12] MEDS: Potassium Chloride 10% 20 MEQ/15 ML Soln 15 ML UD Cup PO SCH (08:26)
--- NOTE | 2021-06-13 00:41 | DISCH ---
PRIMARY DISCHARGE DIAGNOSES: 1. Hypokalemia. 2. Dizziness secondary to dehydration, resolved. 3. Severe thrombocytopenia without bleeding, probably due to liver disease. 4. History of alcohol abuse. 5. 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 6. History of gastrointestinal bleeding, but no bleeding on this stay. 7. Coughing with underlying emphysema, improved. She did not require any antibiotics. She has an inhaler at home. 8. Smoking. REASON FOR ADMISSION: On the date of admission, this 65-year-old, who is about 6 months overdue for a followup appointment had been really taking her pills at home, just had restarted some vitamins. She had been on blood pressure pills in the past, but had actually got off them due to lower blood pressures. She came into the clinic yesterday and was found to be dehydrated. She had a very low potassium of 2.9 and sodium 131. She also had platelets at 37, which previously they were normal. She had previously been on Ursodiol for itching. She otherwise got a liter of fluids in the clinic and then got oral and IV potassium. This morning, her potassium actually came up to 5.0, so instructions were given to not take her potassium supplements at home that she was not taking anyway. Her hemoglobin was 10.7. She did not have any bleeding. She was given an oral PPI while she was here. She had a little bit of upset stomach. She related it more to coughing and her abdominal x-rays did not show any bowel obstruction and she had no further vomiting while she was in the hospital. The patient was up walking around her room and ready for discharge. PHYSICAL EXAMINATION: Vital Signs: Discharging vitals included temperature 98.5, pulse 110, blood pressure 129/84, respiratory rate 18, and O2 of 94 on room air. General: In no acute distress. Heart: Regular rate and rhythm. S1, S2 without murmur. Lungs: Sounds are clear to auscultation bilaterally without crackles or wheezes. Abdomen: Positive bowel sounds. Soft. Mildly distended, but no ascites. No tenderness. Extremities: Warm and dry. No edema. No bruising. Mental Status: Alert and orientated x3. DISCHARGE PLANS AND INSTRUCTIONS: She will follow up in the clinic with Dr. Padilla in 1 to 2 weeks time and she will have a CMP, CBC, and magnesium level. She will continue her oral B12 at home. She will continue home magnesium pills, but hold on the potassium for now. Her magnesium was 1 and we gave her both IV and oral magnesium. She will also not drink alcohol. Encouraged to quit smoking. She may use Tylenol p.r.n. for pain and use her inhaler if needed. She did not use any nebulizers while in the hospital. She did not use any oxycodone pain pills. She did get the flu shot prior to discharge. MKA: 06/12/2021 17:19:12 MODL: 06/13/2021 00:34:04 /[id number]
== END 2021-06-12 10:05 | disposition home or self-care (01) | DRG 641 ==
LOC: VM.MS 15:53
PROVIDERS: ADMIT Internal Medicine; ATTEND Internal Medicine
DX: E87.6 Hypokalemia (principal); E86.0 Dehydration; D69.6 Thrombocytopenia, unspecified; F10.10 Alcohol abuse, uncomplicated; K70.30 Alcoholic cirrhosis of liver without ascites; Z87.19 Personal history of other diseases of the digestive system; J43.9 Emphysema, unspecified; F17.210 Nicotine dependence, cigarettes, uncomplicated; Z20.822 Contact with and (suspected) exposure to COVID-19; I10 Essential (primary) hypertension; E53.8 Deficiency of other specified B group vitamins; M19.90 Unspecified osteoarthritis, unspecified site; F32.9 Major depressive disorder, single episode, unspecified; Z86.16 Personal history of COVID-19; Z88.5 Allergy status to narcotic agent; Z79.899 Other long term (current) drug therapy; Z87.01 Personal history of pneumonia (recurrent); Z98.890 Other specified postprocedural states
CPT/HCPCS: 36415; 74019; 80053; 81001; 83690; 83735; 85025; 85610; 87086; 90662; A9270-GY; J3475; J3480

== ENCOUNTER 2021-07-12 11:02 | Inpatient (IN) | payer MEDICARE, MEDICAID ==
[2021-07-12] MEDS ORDERED: Pantoprazole 40 MG Vial IVPUSH ONE ×2 (11:12→15:07)
[2021-07-12] MEDS ORDERED: Ondansetron 4 MG/2 ML SDV IVPUSH ONE (11:15)
--- NOTE | 2021-07-12 11:25 | EDM.PDOC ---
ED HPI GENERAL MEDICAL PROBLEM - General Chief Complaint: General Stated Complaint: hematemesis Time Seen by Provider: 07/12/21 11:02 Source of Information: Reports: Patient, EMS History Limitations: Reports: No Limitations - History of Present Illness INITIAL COMMENTS - FREE TEXT/NARRATIVE: Eugenia is a 65 year old female presents by EMS with vomiting up blood. States started last evening, thought would possibly get better. Has had many episodes since that time and hasn't seen much improvement. Denies any blood in her stools. Has mild abdominal discomfort and nausea. Has not been able to eat, states every time she tries to eat or drink, has another episode of vomiting. Denies any past medical concerns although states was on a blood thinner and a blood pressure pill in the past. No longer takes any medications. Has been falling, has multiple bruises noted to arms, chest. States weakness and falls just started yesterday. History of alcohol use, quit for many months but started drinking again several months ago due to depression. Drinks a 1/5 of gin every few days. Relates that hasn't been drinking now again for "weeks". No fevers. No chest pain. Does admit to shortness of breath. Duration: Hour(s):, Waxing/Waning Location: Reports: Abdomen Quality: Reports: Ache Severity: Mild Associated Symptoms: Reports: Malaise, Nausea/Vomiting, Shortness of Breath, Weakness. 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 [No Known Home Meds] 07/12/21 [History] Past Medical History HEENT History: Reports: Cataract Cardiovascular History: Reports: Hypertension Other Respiratory History: pneumonia. emphysema Gastrointestinal History: Reports: Bowel Obstruction, Colon Polyp Other Gastrointestinal History: sigmoid volvulus Genitourinary History: Reports: Acute Renal Failure Musculoskeletal History: Reports: Arthritis Other Neuro History: neurodermatitis Psychiatric History: Reports: Anxiety, Depression Other Psychiatric History: alcohol dependence. smoking Other Hematologic History: hypercalcemia. hypomagnesium. B12 deficiency. thrombocytopenia - Infectious Disease History Infectious Disease History: Reports: Novel Coronavirus - Past Surgical History HEENT Surgical History: Reports: Cataract Surgery, Oral Surgery GI Surgical History: Reports: Colonoscopy Other GI Surgeries/Procedures: ventral hernia repair Social & Family History - Family History Family Medical History: No Pertinent Family History - Caffeine Use Caffeine Use: Reports: None ED ROS GENERAL - Review of Systems Review Of Systems: See Below Constitutional: Reports: Malaise, Weakness, Fatigue, Decreased Appetite. Denies: Fever, Chills HEENT: Denies: Ear Pain, Rhinitis, Sinus Problem, Throat Pain Respiratory: Reports: Shortness of Breath. Denies: Cough Cardiovascular: Reports: Lightheadedness. Denies: Chest Pain, Edema Endocrine: Reports: Fatigue GI/Abdominal: Reports: Abdominal Pain, Hematemesis, Nausea, Vomiting. Denies: Constipation, Diarrhea : Reports: No Symptoms Musculoskeletal: Reports: No Symptoms Skin: Reports: Bruising Neurological: Reports: Weakness ED EXAM, GENERAL - Physical Exam Exam: See Below Exam Limited By: No Limitations General Appearance: Alert, WD/WN, Mild Distress Ears: Normal External Exam, Normal TMs Nose: Normal Inspection, Normal Mucosa, No Blood Throat/Mouth: Normal Inspection, Normal Oropharynx Head: Normocephalic Neck: Normal Inspection, Supple, Non-Tender Respiratory/Chest: No Respiratory Distress, Decreased Breath Sounds Cardiovascular: Regular Rate, Rhythm GI/Abdominal: Normal Bowel Sounds, Soft, Tender (upper quadrant tenderness) Extremities: No Pedal Edema Neurological: Alert, Oriented Skin Exam: Ecchymosis (significant bruising noted to arms, chest, shoulder) Course - Vital Signs Last Recorded V/S: Last Vital Signs Temp 97.4 F 07/12/21 11:03 Pulse 110 H 07/12/21 13:11 Resp 14 07/12/21 13:11 BP 88/57 L 07/12/21 13:11 Pulse Ox 92 L 07/12/21 13:11 - Orders/Labs/Meds Orders: Active Orders 24 hr Category Date Time Status NS + KCl 20mEq/L [Normal Saline with 20 mEq KCl] 1,000 Med 07/12/21 14:30 Active ml IV ASDIRECTED Sodium Chloride 0.9% [Normal Saline] 1,000 ml Med 07/12/21 11:30 Active IV ASDIRECTED Medication Orders Sodium Chloride (Normal Saline) 1,000 mls @ 150 mls/hr IV ASDIRECTED ARIA Last Admin: 07/12/21 11:10 Dose: 150 mls/hr Documented by: SARKIS Potassium Chloride/Sodium Chloride (Normal Saline With 20 Meq Kcl) 1,000 mls @ 100 mls/hr IV ASDIRECTED ARIA Last Admin: 07/12/21 14:33 Dose: 100 mls/hr Documented by: SARKIS Labs: Laboratory Tests 07/12/21 07/12/21 07/12/21 Range/Units 11:27 11:27 11:27 WBC 10.8 H (4.0-10.0) x10^3/uL RBC 2.80 L (4.00-5.50) x10^6/uL Hgb 8.6 L D (12.0-16.0) g/dL Hct 24.0 L (33.0-47.0) % MCV 85.7 D (78.0-93.0) fL MCH 30.7 (26.0-32.0) pg MCHC 35.8 (32.0-36.0) g/dL RDW Coeff of Heraclio 16.2 H (10.0-15.0) % Plt Count 60 L (130-400) x10^3/uL Immature Gran % (Auto) 0.20 (0.00-0.43) % Neut % (Auto) 62.8 (50.0-80.0) % Lymph % (Auto) 27.0 (25.0-50.0) % [place] % (Auto) 9.6 (2.0-11.0) % Eos % (Auto) 0.1 (0.0-4.0) % Baso % (Auto) 0.3 (0.2-1.2) % Neut # (Auto) 6.8 (1.8-7.7) x10^3/uL Lymph # (Auto) 2.9 (1.0-4.8) x10^3/uL [place] # (Auto) 1.0 H (0.0-0.8) x10^3/uL Eos # (Auto) 0.0 (0.0-0.5) x10^3/uL Baso # (Auto) 0.0 (0.0-0.2) x10^3/uL Immature Gran # (Auto) 0.02 (0.00-0.07) x10^3/uL PT 18.7 H D (9.9-12.5) SEC INR 1.7 L (2.0-3.5) APTT 28.0 (25.6-32.8) SEC Sodium (136-145) mmol/L Potassium (3.5-5.1) mmol/L Chloride (98-107) mmol/L Carbon Dioxide (21-32) mmol/L Anion Gap (5-15) mmol/L BUN (7-18) mg/dL Creatinine (0.55-1.02) mg/dL Est Cr Clr Drug Dosing Estimated GFR (MDRD) Glucose (70-99) mg/dL Calcium (8.5-10.1) mg/dL Corrected Calcium (8.5-10.1) mg/dL Magnesium (1.8-2.4) mg/dL Total Bilirubin (0.2-1.0) mg/dL AST (15-37) U/L ALT (14-59) U/L Alkaline Phosphatase (46-116) U/L C-Reactive Protein (<=0.9) mg/dL NT-Pro-B Natriuret Pep (<=125) pg/mL Total Protein (6.4-8.2) g/dL Albumin (3.4-5.0) g/dL Globulin Albumin/Globulin Ratio SARS CoV-2 RNA Rapid SAMRA (NEGATIVE) Blood Type O POSITIVE Gel Antibody Screen Negative 07/12/21 07/12/21 07/12/21 Range/Units 11:27 11:27 11:33 WBC (4.0-10.0) x10^3/uL RBC (4.00-5.50) x10^6/uL Hgb (12.0-16.0) g/dL Hct (33.0-47.0) % MCV (78.0-93.0) fL MCH (26.0-32.0) pg MCHC (32.0-36.0) g/dL RDW Coeff of Heraclio (10.0-15.0) % Plt Count (130-400) x10^3/uL Immature Gran % (Auto) (0.00-0.43) % Neut % (Auto) (50.0-80.0) % Lymph % (Auto) (25.0-50.0) % [place] % (Auto) (2.0-11.0) % Eos % (Auto) (0.0-4.0) % Baso % (Auto) (0.2-1.2) % Neut # (Auto) (1.8-7.7) x10^3/uL Lymph # (Auto) (1.0-4.8) x10^3/uL [place] # (Auto) (0.0-0.8) x10^3/uL Eos # (Auto) (0.0-0.5) x10^3/uL Baso # (Auto) (0.0-0.2) x10^3/uL Immature Gran # (Auto) (0.00-0.07) x10^3/uL PT (9.9-12.5) SEC INR (2.0-3.5) APTT (25.6-32.8) SEC Sodium 139 (136-145) mmol/L Potassium 3.2 L D (3.5-5.1) mmol/L Chloride 97 L (98-107) mmol/L Carbon Dioxide 32 (21-32) mmol/L Anion Gap 13.2 (5-15) mmol/L BUN 45 H D (7-18) mg/dL Creatinine 1.9 H (0.55-1.02) mg/dL Est Cr Clr Drug Dosing TNP Estimated GFR (MDRD) 32 Glucose 107 H (70-99) mg/dL Calcium 8.4 L (8.5-10.1) mg/dL Corrected Calcium 9.8 (8.5-10.1) mg/dL Magnesium 0.6 L* (1.8-2.4) mg/dL Total Bilirubin 5.0 H (0.2-1.0) mg/dL AST 173 H (15-37) U/L ALT 32 (14-59) U/L Alkaline Phosphatase 82 (46-116) U/L C-Reactive Protein 3.5 H (<=0.9) mg/dL NT-Pro-B Natriuret Pep 1334 H (<=125) pg/mL Total Protein 9.2 H (6.4-8.2) g/dL Albumin 2.2 L (3.4-5.0) g/dL Globulin 7.0 Albumin/Globulin Ratio 0.31 SARS CoV-2 RNA Rapid SAMRA Negative (NEGATIVE) Blood Type Gel Antibody Screen Meds: Medications Generic Name Dose Route Start Last Admin Trade Name Freq PRN Reason Stop Dose Admin Sodium Chloride 1,000 mls @ 150 mls/hr 07/12/21 11:30 07/12/21 11:10 Normal Saline IV 150 mls/hr ASDIRECTED ARIA Administration Potassium Chloride/Sodium Chloride 1,000 mls @ 100 mls/hr 07/12/21 14:30 07/02 09/21 14:33 Normal Saline With 20 Meq Kcl IV 100 mls/hr ASDIRECTED ARIA Administration Discontinued Medications Generic Name Dose Route Start Last Admin Trade Name Freq PRN Reason Stop Dose Admin Magnesium Sulfate 2 gm/ Premix 50 mls @ 25 mls/hr 07/12/21 12:41 07/12/21 12:54 IV 07/12/21 14:40 25 mls/hr ONETIME ONE Administration Ondansetron HCl 4 mg 07/12/21 11:15 07/12/21 11:19 Ondansetron 4 Mg/2 Ml Sdv IVPUSH 07/12/21 11:16 4 mg ONETIME ONE Administration Pantoprazole Sodium 40 mg 07/12/21 11:12 07/12/21 11:21 Pantoprazole 40 Mg Vial IVPUSH 07/12/21 11:13 40 mg ONETIME ONE Administration - Re-Assessments/Exams Free Text/Narrative Re-Assessment/Exam: 07/12/21 1215 Labs all reviewed. Discussed with Dr. Bender. REcommended transfer. Contacted [facility]. Due to reason for admission, unable to take patient at this time. Called [facility], no bed available. 1245-Contact [facility], left message for possible arrangement for transfer. 07/12/21 13:14 Discussed with [facility]. Unsure if able to take patient. Will consult with nurse chemical manager and return call back. 07/12/21 13:35 Received call back from Dr. [place] in [place]. Unable to take this patient in transfer. 07/12/21 1415-[facility] returned call, no available beds in the [facility]. Dr. Bender notified. 1430-IV fluids changed to NS with potassium Departure - Departure Time of Disposition: 14:53 Disposition: Admitted As Inpatient 66 Condition: Undetermined Clinical Impression: GI bleed not requiring more than 4 units of blood in 24 hours, ICU, or surgery, Hypomagnesemia, Elevated liver enzymes, Hypokalemia - Discharge Information *PRESCRIPTION DRUG MONITORING PROGRAM REVIEWED*: No *COPY OF PRESCRIPTION DRUG MONITORING REPORT IN PATIENT JANEEN: No Sepsis Event Note (ED) - Focused Exam Vital Signs: Vital Signs Temp Pulse Resp BP Pulse Ox 07/12/21 13:11 110 H 14 88/57 L 92 L 07/12/21 12:11 115 H 16 100/64 91 L 07/12/21 11:03 97.4 F 122 H 18 98/62 95 - My Orders Last 24 Hours: My Active Orders 07/12/21 11:30 Sodium Chloride 0.9% [Normal Saline] 1,000 ml IV ASDIRECTED 07/12/21 14:30 NS + KCl 20mEq/L [Normal Saline with 20 mEq KCl] 1,000 ml IV ASDIRECTED - Assessment/Plan Last 24 Hours: My Active Orders 07/12/21 11:30 Sodium Chloride 0.9% [Normal Saline] 1,000 ml IV ASDIRECTED 07/12/21 14:30 NS + KCl 20mEq/L [Normal Saline with 20 mEq KCl] 1,000 ml IV ASDIRECTED
[2021-07-12] MEDS ORDERED: Sodium Chloride 0.9% 1,000 ML IV SCH (11:30)
[2021-07-12 11:59] LABS: CHLORIDE,CL 97 mmol/L (98-107); SODIUM,NA 139 mmol/L (136-145)
[2021-07-12 12:00] LABS: ANION GAP 13.2 mmol/L (5-15)
[2021-07-12] MEDS ORDERED: Magnesium Sulfate/Water 2 GM in Premix Bag 1 BAG IV ONE (12:41)
--- NOTE | 2021-07-12 13:33 | CR ---
[id number] RAD/RAD Chest PA or AP 1V EXAM: SINGLE VIEW CHEST. INDICATION: SHORTNESS OF BREATH COMPARISON: CORRELATION IS MADE WITH 2019 FINDINGS: The lungs are clear and somewhat hyperaerated The cardiomediastinal contour is stable IMPRESSION: PROBABLE AIRWAY DISEASE Usman Kimball MD 07/12/21 4460 Thank you for allowing us to participate in the care of your patient.
[2021-07-12] MEDS ORDERED: NS + KCl 20mEq/L 1,000 ML IV SCH (14:30)
[2021-07-12] MEDS ORDERED: Sodium Chloride 0.9% 10 ML Syringe FLUSH PRN (15:24)
[2021-07-12] MEDS ORDERED: Ondansetron 4 MG/2 ML SDV IV PRN (15:24)
[2021-07-12] MEDS ORDERED: Phytonadione 5 MG Tab PO ONE (15:31)
[2021-07-12] MEDS ORDERED: Octreotide 100 MCG/ML SDV SUBCUT ONE (15:51)
[2021-07-12] MEDS ORDERED: Octreotide 100 MCG/ML SDV IV ONE (16:13)
[2021-07-12] MEDS ORDERED: Octreotide 100 MCG in Sodium Chloride 0.9% 100 ML IV SCH (16:15)
[2021-07-12] MEDS ORDERED: Acetaminophen 325 MG Tab PO PRN (16:15)
[2021-07-12] MEDS ORDERED: Pantoprazole 40 MG in Sodium Chloride 0.9% 100 ML IV SCH (16:15)
--- NOTE | 2021-07-12 22:45 | HP ---
CHIEF COMPLAINT: Upper GI bleeding. HISTORY OF PRESENT ILLNESS: The patient is a 65-year-old female, who was brought in by EMS with throwing up blood for the past 2 days. It is unclear as to how much blood she has thrown up. When seen by the midlevel, Pretty Padilla, she thought it was starting last evening, but possibly better today; however, she is quite lethargic and gives a poor history. She has some mild upper abdominal discomfort and nausea. She has not been able to eat. Every time she eats, she throws up. To note, she has not been on any blood thinners or blood pressure medicines. She has been falling. She has multiple bruises on her arms. She is weaker. She lives home alone. She has a history of alcohol use, but she said she quit several months ago, but she had been drinking a 5th of gin every few days. The patient to note was hospitalized on 06/11/2021, also for hypokalemia, dizziness, known severe thrombocytopenia without bleeding at that time due to liver disease, alcohol disease. She had been dehydrated the day prior to that with potassium of 2.9 and sodium 131. Platelets had been down to 37, which had previously been normal. The patient was to have followed up in the clinic, but failed to a week later. She was supposed to continue her oral B12 as well as magnesium. The patient had had a previous hemoglobin on 06/12 of 0.7 with platelets of 37. Her sodium was 137, potassium 5.0, creatinine 0.8, GFR greater than 60, BUN was 8. LFTs showed AST 74 on 06/12/2021. Her INR on 06/11 had been 1.2. The patient denies fever or chills. She denies cough. She denies hitting her head. MEDICATIONS: Currently she is on: Vitamin B12 1000 mcg oral daily, Tylenol 325 two pills every 4 hours as needed, ursodiol 250 mg 1 pill twice a day as needed for itching, potassium chloride 20 mEq 1 pill daily, magnesium oxide 400 mg daily. ALLERGIES: Codeine, hydrocodone, tramadol. PAST MEDICAL HISTORY: The patient had known acute kidney injury in the past with creatinine up to 3.6 on 05/29/2020. She has had anxiety, arthritis, B12 deficiency, hypertension - currently not medicated. She has had GI bleed. She has had a previous Juliet-Ramon tear in 09/2020. She has had portal hypertension with gastropexy on PPIs. She has had colon polyps. She has had hypokalemia, hypercalcemia, hypomagnesemia, depression, possibly bipolar disorder, neurodermatitis. Emphysema, but not known PFT. She has had pancreatitis in the past. She has had a small bowel obstruction in 05/2018, had elective repair for incarcerated hernia in 2 different areas, had incarcerated incisional hernia in the right lower abdomen at the site of the previous colostomy and incarcerated incisional hernia on the right lower abdomen with midline mesh. She has had a sigmoid volvulus in 2016. She smokes. She has had thrombocytopenia. She has had alcohol dependence. PAST SURGICAL HISTORY: She has had colon surgery in 2016 due to volvulus with colostomy. She has had ventral hernia repair in 2018. She has had upper endoscopy on 09/29/2020. FAMILY MEDICAL HISTORY: Mother has had scleroderma, hypertension. Father had hypertension; he was shot, . Sister has had hypertension and heart disease. Maternal aunt had breast cancer. Son had kidney disease, on dialysis, and has . SOCIAL HISTORY: She smokes quarter of a pack a day. She has consumed alcohol. Unclear as to when she exactly quit, possibly a month ago. She is . The patient had a boyfriend, who when she was 50. She is on disability for depression. She has 7 children, some in [place] and [place], where she is originally from before moving to [place] in 03/2017 where her son had lived. The patient is normally under the care of Dr. Kellie Padilla. REVIEW OF SYSTEMS: As noted, falling. No fever or chills. No cough. PHYSICAL EXAMINATION: Vital Signs: The patient's blood pressure was 98/62 on presentation to the ER and then dropped to 88/57; pulse had been 122, did improve to 108; sats were 92% on room air. General: To note, the patient was lethargic, lying on her left side, her blood pressure did drop to 77/80. She is with light complexion. HEENT: Her pharynx is dry. Heart: Tachycardic. Lungs: Clear to auscultation. Abdomen: Bowel sounds are present, but it is tender in the epigastric area. The patient also is somewhat confused with talking. Her speech is somewhat rambling. SUMMARY OF EMERGENCY ROOM COURSE: The patient was given initial IV infusion of normal saline 1 L. She was given 40 mg of Protonix IV push. Initial attempts to have the patient transferred elsewhere, where they have surgical services as well as ability to do platelet transfusions and EGD scoping, were done; however, there were no beds available at [facility] or [facility] in [place], [place] for transferring beds. The [facility] was contacted and there were no beds available in [facility], so the patient is going to be admitted here. IMPRESSION: 1. Acute upper gastrointestinal bleed. 2. Hypovolemic shock. 3. Hypomagnesemia. 4. Thrombocytopenia. 5. Elevated liver function tests. 6. History of alcoholism. 7. History of Juliet-Ramon tear. 8. Vitamin B12 deficiency. 9. Hypocoagulable. PLAN: The patient will be admitted to acute care. She is code level 1. She is a patient of Dr. Kellie Padilla; I will follow her care while she is absent. We will give her vitamin K 5 mg. We will also try giving her octreotide if available. We will place her on a Protonix drip. We will have a peripheral IV access started. She is switched over to normal saline with 20 of potassium chloride and we will switch that actually over to D5 normal saline with 20 potassium once current IV is gone. We will also recheck her hemoglobin as well as an ammonia level and lipase level. We will have her on a clear liquid diet. We will have her on cardiac nurse specialist. The patient will not be placed on Lovenox for DVT prophylaxis due to problems with acute GI bleeding right now. The patient is code level 1 status. To note, the patient may from her current health problems and she was told that we were not able to transfer her. If her blood pressure would continue to drop, we would need to start pressors for improvement of her blood pressure. Also, we will get a baseline EKG on the patient. It was noted that her proBNP was elevated on admit. To note, COVID testing was done and was negative. Lab work done in the ER today shows white blood cell count 10.5, hemoglobin 8.6, platelet count 60. Protime INR of 1.7, PTT 28. Sodium was 139, potassium 3.2, creatinine 1.9, GFR 32, BUN 45, glucose 107, magnesium 0.6, total bilirubin 5.0, AST 173. CRP 3.5. ProBNP 1334. COVID was negative. After the patient had been admitted to the floor, I did contact [facility] again to see if they would be able to take the patient in transfer and they are working on trying to get the patient admitted when a bed becomes available due to the severity of her illness. GM07/12/2021 16:11:11 MODL: 07/12/2021 22:40:22 /[id number]
--- NOTE | 2021-07-12 23:45 | DISCH ---
DISCHARGE DIAGNOSES: 1. Upper gastrointestinal bleed. 2. Hypovolemic shock. 3. Anemia secondary to gastrointestinal bleeding. 4. Elevated liver function tests. 5. Thrombocytopenia. 6. Hypomagnesemia. 7. Hypokalemia. 8. History of cirrhosis. 9. Alcoholism. 10.Lethargy. 11.Hypocoagulable. HISTORY OF ADMIT HISTORY AND PHYSICAL: The patient is a 65-year-old female, who presented to the emergency room at 11 a.m. this morning by EMS with vomiting up blood for the past 2 days. She was a poor historian. On admit, her hemoglobin was 8.6, platelet count was 60. INR was elevated at 1.7. Her BUN was elevated at 45. Magnesium was severely low at 0.6, potassium low at 3.2, total bilirubin elevated at 5.0, AST elevated at 173, CRP 3.5, ProBNP elevated 1334. COVID was negative. The patient was given a Protonix push 40 mg immediately in the emergency room as well as IV fluid resuscitation initially with normal saline, then she was switched to normal saline with potassium. It was noted the patient's blood pressure on presentation in the emergency room was 98/62 with pulse of 122, then her blood pressure did drop to 88/57, but pulse had improved to 110. On physical exam, the patient had bowel sounds. She did have some upper abdominal tenderness. She was noted to be more lethargic, somewhat of a poor historian and confused. The patient, because no beds were available for transfer, was then placed on acute care at [facility]; however, additional contact was made with [facility]. SUMMARY OF HOSPITAL COURSE: The patient had some additional lab work done, which showed her hemoglobin at 1600 to have dropped down to 8.1 with hematocrit 22.7. Her ammonia level was less than 17. She had had a lipase done that was 33. Blood alcohol was done at less than 3. She did have a negative COVID test also prior to admit to the floor. A chest x-ray had been done, which came back normal; there was no evidence of free air under the diaphragm. The patient was given additional 40 of Protonix push as well as started on a Protonix drip. She was given octreotide initial dose of 50 mcg IV 1 time. She was given some magnesium in the ER of 2 g. The patient had been given ondansetron for nausea. Also, she was started on a Protonix drip. The patient was not given any Lovenox or heparin for DVT prophylaxis due to active GI bleeding and had a compression hose placed on her legs. Then at 1625, a call was received from [facility] about ability to transfer the patient to Dr. Batres at [facility] in [place], so paperwork was made for transfer. To note, the patient is code level 1 status. No family was present with the patient. Also to note, the patient's name is confusing in that at [facility], it is Eugenia Espinoza, but at [facility], it is Eugenia Bernadette. The patient's regular primary care provider is Dr. Kellie Padilla. The patient will go by ALS ambulance transfer. GM07/12/2021 17:06:59 MODL: 07/12/2021 23:38:45 /[id number]
[2021-07-13] MEDS ORDERED: Magnesium Oxide 400 MG Tab PO SCH (08:00)
[2021-07-13] MEDS ORDERED: Potassium Chloride 20 MEQ Tab.ER PO SCH (08:00)
[2021-07-13] MEDS ORDERED: Cyanocobalamin (Vitamin B12) 1,000 MCG Tab PO SCH (08:00)
== END 2021-07-12 18:47 | disposition short-term general hospital (02) | DRG 377 ==
LOC: VM.ED 11:02 → VM.MS 14:47
PROVIDERS: ADMIT Family Medicine; ATTEND Internal Medicine
DX: K92.2 Gastrointestinal hemorrhage, unspecified (principal); R57.1 Hypovolemic shock; E83.42 Hypomagnesemia; D69.6 Thrombocytopenia, unspecified; R79.89 Other specified abnormal findings of blood chemistry; E53.8 Deficiency of other specified B group vitamins; Z20.822 Contact with and (suspected) exposure to COVID-19; F32.A Depression, unspecified; I10 Essential (primary) hypertension; J43.9 Emphysema, unspecified; Y90.9 Presence of alcohol in blood, level not specified; M19.90 Unspecified osteoarthritis, unspecified site; F17.200 Nicotine dependence, unspecified, uncomplicated; F41.9 Anxiety disorder, unspecified; F32.9 Major depressive disorder, single episode, unspecified; E87.6 Hypokalemia; D64.9 Anemia, unspecified; F10.20 Alcohol dependence, uncomplicated; F17.210 Nicotine dependence, cigarettes, uncomplicated; Z88.5 Allergy status to narcotic agent; Z88.6 Allergy status to analgesic agent
CPT/HCPCS: 36415; 71045; 80053; 80307; 82140; 83690; 83735; 83880; 85014; 85018; 85025; 85610; 85730; 86140; 86850; 86900; 86901; 96365; 96366; 96367; 96375; 99285-25; A9270-GY; C9113; J2354-JA; J2405; J3475; J3480; J7030; U0002

== ENCOUNTER 2021-10-17 13:44 | Inpatient (IN) | payer MEDICARE, MEDICAID ==
[2021-10-17] MEDS ORDERED: Ondansetron 4 MG/2 ML SDV IVPUSH PRN (13:53)
[2021-10-17] MEDS ORDERED: Magnesium Sulfate/Water 4 GM in Premix Bag 1 BAG IV ONE (15:30)
[2021-10-17] MEDS: Potassium Chloride 10 MEQ Tab.ER PO SCH ×2 (16:20→20:15)
[2021-10-17] MEDS: Pantoprazole 40 MG Vial IVPUSH SCH ×2 (16:56→20:18)
[2021-10-17] MEDS: fentaNYL 50 MCG/ML SDV IVPUSH PRN (18:33)
[2021-10-17] MEDS: Sodium Chloride 0.9% 10 ML Syringe FLUSH PRN ×2 (20:22→21:16)
[2021-10-17] MEDS: NS + KCl 20mEq/L 1,000 ML IV SCH (21:16)
[2021-10-18] MEDS: fentaNYL 50 MCG/ML SDV IVPUSH PRN (04:47)
[2021-10-18] MEDS: Sodium Chloride 0.9% 10 ML Syringe FLUSH PRN (04:55)
[2021-10-18] MEDS: NS + KCl 20mEq/L 1,000 ML IV SCH (05:22)
[2021-10-18 07:27] LABS: ANION GAP 8.9 mmol/L (5-15)
[2021-10-18] MEDS: Pantoprazole 40 MG Vial IVPUSH SCH (07:47)
[2021-10-18] MEDS ORDERED: Potassium Chloride 10 MEQ Tab.ER PO SCH (08:00)
[2021-10-18] MEDS ORDERED: Magnesium Oxide 400 MG Tab PO SCH (08:00)
== END 2021-10-18 14:15 | disposition home or self-care (01) | DRG 683 ==
LOC: VM.MS 14:22
PROVIDERS: ADMIT Internal Medicine; ATTEND Internal Medicine
DX: N17.9 Acute kidney failure, unspecified (principal); D62 Acute posthemorrhagic anemia; K92.2 Gastrointestinal hemorrhage, unspecified; E86.0 Dehydration; E87.6 Hypokalemia; K70.9 Alcoholic liver disease, unspecified; E55.9 Vitamin D deficiency, unspecified; E83.42 Hypomagnesemia; F31.9 Bipolar disorder, unspecified; J43.9 Emphysema, unspecified; F17.210 Nicotine dependence, cigarettes, uncomplicated; Z20.822 Contact with and (suspected) exposure to COVID-19; D69.6 Thrombocytopenia, unspecified; F10.20 Alcohol dependence, uncomplicated; Z88.5 Allergy status to narcotic agent; Z79.899 Other long term (current) drug therapy; Z79.52 Long term (current) use of systemic steroids
CPT/HCPCS: 36415; 80053; 81001; 82248; 83735; 85025; 85610; A9270-GY; C9113; J3010; J3475; J3480; U0002

== ENCOUNTER 2022-04-09 01:02 | Inpatient (IN) | payer MEDICARE, MEDICAID ==
[2022-04-09] MEDS ORDERED: Ondansetron 4 MG/2 ML SDV IVPUSH ONE (01:14)
[2022-04-09] MEDS ORDERED: Pantoprazole 40 MG Vial IVPUSH ONE (01:16)
[2022-04-09] MEDS ORDERED: Sodium Chloride 0.9% 500 ML IV ONE (01:49)
[2022-04-09 02:00] LABS: ANION GAP 10.1 mmol/L (5-15); CHLORIDE,CL 97 mmol/L (98-107); ESTIMATED GFR 45 mL/min (>=60); SODIUM,NA 134 mmol/L (136-145)
[2022-04-09] MEDS ORDERED: Magnesium Sulfate/Water 2 GM in Premix Bag 1 BAG IV ONE (02:20)
[2022-04-09] MEDS: NS + KCl 20mEq/L 1,000 ML IV SCH ×3 (04:50→22:05)
[2022-04-09 04:57] LABS: CORONAVIRUS COVID-19 NAA NEGATIVE (NEGATIVE); RESPIRATORY SYNCYTIAL VIR NAA NEGATIVE (NEGATIVE)
[2022-04-09 07:26] LABS: ANION GAP 9.3 mmol/L (5-15); CHLORIDE,CL 101 mmol/L (98-107); ESTIMATED GFR 50 mL/min (>=60); SODIUM,NA 136 mmol/L (136-145)
[2022-04-09] MEDS: Pantoprazole 40 MG in Sodium Chloride 0.9% 100 ML IV SCH ×4 (08:26→23:16)
[2022-04-09] MEDS ORDERED: Ondansetron 4 MG/2 ML SDV IVPUSH PRN (09:27)
[2022-04-09] MEDS ORDERED: Ondansetron 4 MG Tab.DIS PO PRN (09:42)
[2022-04-09] MEDS ORDERED: Octreotide 100 MCG/ML SDV IV ONE (09:45)
[2022-04-09] MEDS: Potassium Chloride 10 MEQ Tab.ER PO SCH (10:39)
[2022-04-09] MEDS: Propranolol 20 MG Tab PO SCH ×2 (10:39→17:51)
[2022-04-09] MEDS: Magnesium Oxide 400 MG Tab PO SCH ×2 (10:39→20:03)
[2022-04-09] MEDS: cefTRIAXone 1 GM Vial IVPUSH SCH (10:40)
[2022-04-09] MEDS: Octreotide 100 MCG in Sodium Chloride 0.9% 100 ML IV SCH ×3 (11:46→16:56)
[2022-04-09] MEDS: Multivitamins with Iron/Calcium/Folic Acid/Minerals Tab PO SCH (13:46)
[2022-04-09] MEDS: Phytonadione 100 MCG Tab PO SCH (13:46)
[2022-04-09] MEDS: Doxepin 25 MG Cap PO SCH (20:03)
[2022-04-10] MEDS: Propranolol 20 MG Tab PO SCH ×3 (01:07→18:07)
[2022-04-10] MEDS: Pantoprazole 40 MG in Sodium Chloride 0.9% 100 ML IV SCH (04:14)
[2022-04-10] MEDS: NS + KCl 20mEq/L 1,000 ML IV SCH (06:25)
[2022-04-10 07:16] LABS: ANION GAP 12.7 mmol/L (5-15)
[2022-04-10] MEDS: Magnesium Oxide 400 MG Tab PO SCH ×2 (08:12→20:24)
[2022-04-10] MEDS: Multivitamins with Iron/Calcium/Folic Acid/Minerals Tab PO SCH (08:12)
[2022-04-10] MEDS: Potassium Chloride 10 MEQ Tab.ER PO SCH (08:17)
[2022-04-10] MEDS: Phytonadione 100 MCG Tab PO SCH (08:18)
[2022-04-10] MEDS: cefTRIAXone 1 GM Vial IVPUSH SCH (10:55)
[2022-04-10] MEDS: Pantoprazole 40 MG Vial IVPUSH SCH ×2 (10:55→20:26)
[2022-04-10] MEDS ORDERED: Octreotide 100 MCG/ML SDV ONE (11:09)
[2022-04-10] MEDS: Octreotide 100 MCG in Sodium Chloride 0.9% 100 ML IV SCH ×5 (13:56→22:30)
[2022-04-10] MEDS: Doxepin 25 MG Cap PO SCH (20:24)
[2022-04-11] MEDS: Octreotide 100 MCG in Sodium Chloride 0.9% 100 ML IV SCH ×13 (00:50→23:24)
[2022-04-11] MEDS: Propranolol 20 MG Tab PO SCH ×3 (00:54→16:44)
[2022-04-11 07:29] LABS: ANION GAP 13.4 mmol/L (5-15)
[2022-04-11] MEDS: Magnesium Oxide 400 MG Tab PO SCH ×2 (09:55→20:34)
[2022-04-11] MEDS: Phytonadione 100 MCG Tab PO SCH (09:55)
[2022-04-11] MEDS: Multivitamins with Iron/Calcium/Folic Acid/Minerals Tab PO SCH (09:56)
[2022-04-11] MEDS: Pantoprazole 40 MG Vial IVPUSH SCH ×2 (09:59→20:34)
[2022-04-11] MEDS: cefTRIAXone 1 GM Vial IVPUSH SCH (10:05)
[2022-04-11] MEDS ORDERED: Furosemide 20 MG/2 ML VIAL IV ONE ×3 (11:24→14:27)
[2022-04-11] MEDS ORDERED: Furosemide 40 MG/4 ML VIAL ONE ×2 (11:29→15:20)
[2022-04-11] MEDS: Triamcinolone Acetonide 0.1% Crm 15 GM Tube TOP SCH ×2 (11:46→20:37)
[2022-04-11] MEDS ORDERED: Albuterol/Ipratropium 3.0-0.5 MG/3 ML Neb Soln NEB PRN (14:23)
[2022-04-11] MEDS ORDERED: Octreotide 100 MCG/ML SDV ONE ×2 (18:16→18:31)
[2022-04-11] MEDS: Doxepin 25 MG Cap PO SCH (20:34)
[2022-04-12] MEDS: Propranolol 20 MG Tab PO SCH ×3 (01:24→16:51)
[2022-04-12] MEDS: Octreotide 100 MCG in Sodium Chloride 0.9% 100 ML IV SCH ×4 (01:24→08:16)
[2022-04-12 07:35] LABS: ANION GAP 11.6 mmol/L (5-15)
[2022-04-12] MEDS ORDERED: Magnesium Sulfate/Water 2 GM in Premix Bag 1 BAG IV ONE (08:30)
[2022-04-12] MEDS: cefTRIAXone 1 GM Vial IVPUSH SCH (08:46)
[2022-04-12] MEDS: Phytonadione 100 MCG Tab PO SCH (08:46)
[2022-04-12] MEDS: Magnesium Oxide 400 MG Tab PO SCH ×2 (08:46→20:12)
[2022-04-12] MEDS: Multivitamins with Iron/Calcium/Folic Acid/Minerals Tab PO SCH (08:46)
[2022-04-12] MEDS ORDERED: Furosemide 20 MG/2 ML VIAL IV ONE (08:55)
[2022-04-12] MEDS ORDERED: Magnesium Sulfate/Water 50 ML ONE ×2 (09:01→09:04)
[2022-04-12] MEDS: Potassium Chloride 10 MEQ Tab.ER PO SCH ×2 (09:09→18:09)
[2022-04-12] MEDS: Omeprazole 20 MG Cap.CR PO SCH ×2 (09:09→16:51)
[2022-04-12] MEDS: Triamcinolone Acetonide 0.1% Crm 15 GM Tube TOP SCH ×2 (09:26→20:14)
[2022-04-12] MEDS: Doxepin 25 MG Cap PO SCH (20:12)
[2022-04-13] MEDS: Propranolol 20 MG Tab PO SCH ×2 (00:03→08:44)
[2022-04-13] MEDS: Omeprazole 20 MG Cap.CR PO SCH (06:03)
[2022-04-13 08:30] LABS: ANION GAP 11.9 mmol/L (5-15)
[2022-04-13] MEDS: Phytonadione 100 MCG Tab PO SCH (08:44)
[2022-04-13] MEDS: cefTRIAXone 1 GM Vial IVPUSH SCH (08:44)
[2022-04-13] MEDS: Magnesium Oxide 400 MG Tab PO SCH (08:44)
[2022-04-13] MEDS: Potassium Chloride 10 MEQ Tab.ER PO SCH (08:44)
[2022-04-13] MEDS: Multivitamins with Iron/Calcium/Folic Acid/Minerals Tab PO SCH (08:44)
[2022-04-13] MEDS: Triamcinolone Acetonide 0.1% Crm 15 GM Tube TOP SCH (08:45)
== END 2022-04-13 12:25 | disposition home or self-care (01) | DRG 432 ==
LOC: VM.ED 01:02 → VM.MS 08:19 → OBSVTOIN 09:42
PROVIDERS: ADMIT Family Medicine; ATTEND Internal Medicine
PROC: 30233N1 Transfusion of Nonautologous Red Blood Cells into Peripheral Vein, Percutaneous Approach (ICD-10-PCS; principal; 2022-04-11)
DX: K70.30 Alcoholic cirrhosis of liver without ascites (principal); I85.11 Secondary esophageal varices with bleeding; K92.1 Melena; K92.0 Hematemesis; J96.01 Acute respiratory failure with hypoxia; N39.0 Urinary tract infection, site not specified; K76.6 Portal hypertension; M19.90 Unspecified osteoarthritis, unspecified site; D62 Acute posthemorrhagic anemia; E46 Unspecified protein-calorie malnutrition; F10.20 Alcohol dependence, uncomplicated; E83.42 Hypomagnesemia; F32.A Depression, unspecified; E87.6 Hypokalemia; K70.10 Alcoholic hepatitis without ascites; D69.6 Thrombocytopenia, unspecified; Z20.822 Contact with and (suspected) exposure to COVID-19; J43.9 Emphysema, unspecified; F17.210 Nicotine dependence, cigarettes, uncomplicated; I10 Essential (primary) hypertension; F41.9 Anxiety disorder, unspecified; F31.9 Bipolar disorder, unspecified; K31.89 Other diseases of stomach and duodenum; Z68.27 Body mass index [BMI] 27.0-27.9, adult; Z88.5 Allergy status to narcotic agent; Z88.8 Allergy status to other drugs, medicaments and biological substances; Z79.899 Other long term (current) drug therapy; Z87.01 Personal history of pneumonia (recurrent); Z86.010 Personal history of colon polyps; Z87.19 Personal history of other diseases of the digestive system; Z86.39 Personal history of other endocrine, nutritional and metabolic disease; Z86.16 Personal history of COVID-19; Z98.42 Cataract extraction status, left eye; Z98.41 Cataract extraction status, right eye; Z98.890 Other specified postprocedural states; Z90.89 Acquired absence of other organs
CPT/HCPCS: 0241U; 36415; 36430; 51702; 71046; 74176; 80048; 80053; 81001; 83735; 83880; 84484; 85014; 85018; 85025; 85610; 85730; 86850; 86900; 86901; 86920; 86922; 93005; 94760; 96365; 96366; 96367; 96375; 97161-GP; 99285-25; A9270-GY; C9113; J0696; J1940; J2354-JA; J2405; J3475; J3480; J7030; P9016

== ENCOUNTER 2022-07-23 12:16 | Inpatient (IN) | payer MEDICARE, MEDICAID ==
[2022-07-23] MEDS ORDERED: Sodium Chloride 0.9% 10 ML Syringe FLUSH PRN ×2 (12:19→14:24)
[2022-07-23] MEDS ORDERED: Sodium Chloride 0.9% 1,000 ML IV ONE (12:29)
[2022-07-23] MEDS ORDERED: Ondansetron 4 MG/2 ML SDV IVPUSH ONE ×2 (12:36→13:28)
[2022-07-23 12:49] LABS: CHLORIDE,CL 93 mmol/L (98-107); SODIUM,NA 133 mmol/L (136-145)
[2022-07-23 12:52] LABS: ANION GAP 10.2 mmol/L (5-15); ESTIMATED GFR 55 mL/min (>=60)
[2022-07-23] MEDS ORDERED: Pantoprazole 40 MG Vial IVPUSH ONE (13:24)
[2022-07-23] MEDS ORDERED: HYDROmorphone 0.5 MG/0.5 ML Syringe IVPUSH PRN (14:16)
[2022-07-23] MEDS ORDERED: Promethazine 6.25 MG in Sodium Chloride 0.9% 100 ML IV PRN (14:16)
[2022-07-23] MEDS ORDERED: Potassium Chloride 10% 20 MEQ/15 ML Soln 15 ML UD Cup PO ONE (14:21)
[2022-07-23] MEDS ORDERED: Magnesium Sulfate/Water 4 GM in Premix Bag 1 BAG IV ONE (14:50)
[2022-07-23] MEDS ORDERED: Octreotide 100 MCG/ML SDV IV ONE (14:55)
[2022-07-23] MEDS: cefTRIAXone 1 GM Vial IVPUSH SCH (14:56)
[2022-07-23] MEDS ORDERED: Octreotide 100 MCG in Sodium Chloride 0.9% 100 ML IV SCH (15:00)
[2022-07-23] MEDS: Ondansetron 4 MG/2 ML SDV IV PRN ×2 (15:52→19:53)
[2022-07-23] MEDS: Cholecalciferol (Vitamin D3) 5,000 UNIT Tab PO SCH (17:03)
[2022-07-23] MEDS: Propranolol 20 MG Tab PO SCH (17:46)
[2022-07-23] MEDS: NS + KCl 20mEq/L 1,000 ML IV SCH (20:01)
[2022-07-23] MEDS: Pantoprazole 40 MG Vial IVPUSH SCH (20:04)
[2022-07-23] MEDS: Octreotide 100 MCG in Sodium Chloride 0.9% 100 ML IV SCH ×2 (20:08→22:05)
[2022-07-24] MEDS: Octreotide 100 MCG in Sodium Chloride 0.9% 100 ML IV SCH ×7 (00:06→15:02)
[2022-07-24] MEDS: Propranolol 20 MG Tab PO SCH ×2 (01:02→09:09)
[2022-07-24] MEDS: NS + KCl 20mEq/L 1,000 ML IV SCH (06:25)
[2022-07-24 07:29] LABS: ANION GAP 8.4 mmol/L (5-15)
[2022-07-24] MEDS: Pantoprazole 40 MG Vial IVPUSH SCH (09:06)
[2022-07-24] MEDS: Cholecalciferol (Vitamin D3) 5,000 UNIT Tab PO SCH (09:06)
[2022-07-24] MEDS: Ondansetron 4 MG/2 ML SDV IV PRN (09:42)
[2022-07-24] MEDS ORDERED: Phytonadione 5 MG Tab PO ONE (11:06)
[2022-07-24] MEDS: cefTRIAXone 1 GM Vial IVPUSH SCH (14:01)
[2022-07-24] MEDS ORDERED: Metoclopramide 10 MG/2 ML SDV IVPUSH PRN (14:43)
== END 2022-07-24 16:10 | disposition short-term general hospital (02) | DRG 811 ==
LOC: VM.ED 12:16 → VM.MS 13:19
PROVIDERS: ADMIT Internal Medicine; ATTEND Internal Medicine
PROC: 30233N1 Transfusion of Nonautologous Red Blood Cells into Peripheral Vein, Percutaneous Approach (ICD-10-PCS; principal; 2022-07-23)
DX: D62 Acute posthemorrhagic anemia (principal); I85.01 Esophageal varices with bleeding; E87.1 Hypo-osmolality and hyponatremia; F10.288 Alcohol dependence with other alcohol-induced disorder; R04.2 Hemoptysis; F41.9 Anxiety disorder, unspecified; F10.20 Alcohol dependence, uncomplicated; F17.200 Nicotine dependence, unspecified, uncomplicated; Z20.822 Contact with and (suspected) exposure to COVID-19; K70.30 Alcoholic cirrhosis of liver without ascites; E87.6 Hypokalemia; E83.42 Hypomagnesemia; D69.6 Thrombocytopenia, unspecified; I10 Essential (primary) hypertension; M19.90 Unspecified osteoarthritis, unspecified site; E53.8 Deficiency of other specified B group vitamins; J43.9 Emphysema, unspecified; F32.A Depression, unspecified; Z88.5 Allergy status to narcotic agent; Z79.899 Other long term (current) drug therapy; Z87.01 Personal history of pneumonia (recurrent); Z86.16 Personal history of COVID-19; Z88.8 Allergy status to other drugs, medicaments and biological substances
CPT/HCPCS: 74176; 80053; 80307; 82150; 83690; 83735; 85025; 86140; 86850; 86900; 86901; 86920; 86922; 93005; 94760; J2405; J7030; 36415; 36430; 71045; 81001; 81003; 83880; 85014; 85018; 85610; 87086; 96361; 96374; 96375; 96376; 99285-25; A9270-GY; C9113; G0328; J0696; J1170; J2354-JA; J2550; J3475; J3480; P9016; U0002

== ENCOUNTER 2023-02-15 19:32 | Emergency (ER) | payer MEDICARE, MEDICAID ==
[2023-02-15] MEDS ORDERED: Sodium Chloride 0.9% 10 ML Syringe FLUSH PRN (19:37)
[2023-02-15] MEDS ORDERED: Pantoprazole 40 MG Vial IVPUSH ONE (19:40)
[2023-02-15] MEDS ORDERED: Octreotide 100 MCG/ML SDV IV ONE (19:41)
[2023-02-15] MEDS ORDERED: Sodium Chloride 0.9% 1,000 ML IV SCH ×2 (19:45→20:55)
[2023-02-15 20:00] LABS: BASOPHILS PERCENT AUTO 0.5 % (0.2-1.2); EOSINOPHILS ABSOLUTE AUTO 0.1 x10^3/uL (0.0-0.5); EOSINOPHILS PERCENT AUTO 1.1 % (0.0-4.0); HEMATOCRIT 27.7 % (33.0-47.0); HEMOGLOBIN 9.1 g/dL (12.0-16.0); IMMATURE GRAN ABSOLUTE AUTO 0.01 x10^3/uL (0.00-0.07); LYMPHOCYTES ABSOLUTE AUTO 1.2 x10^3/uL (1.0-4.8); LYMPHOCYTES PERCENT AUTO 20.2 % (25.0-50.0); MEAN CORPUSCULAR HEMOGLOBIN 26.1 pg (26.0-32.0); MEAN CORPUSCULAR HGB CONC 32.9 g/dL (32.0-36.0); MEAN CORPUSCULAR VOLUME 79.4 fL (78.0-93.0); MONOCYTES ABSOLUTE AUTO 0.3 x10^3/uL (0.0-0.8); NEUTROPHILS ABSOLUTE AUTO 4.5 x10^3/uL (1.8-7.7); RED BLOOD CELL COUNT 3.49 x10^6/uL (4.00-5.50); WHITE BLOOD CELL COUNT,WBC 6.2 x10^3/uL (4.0-10.0)
[2023-02-15] MEDS ORDERED: cefTRIAXone 1 GM Vial IVPUSH ONE (20:07)
[2023-02-15 20:08] LABS: PLATELET COUNT,PLT 62 x10^3/uL (130-400)
[2023-02-15 20:13] LABS: INR 1.7 (2.0-3.5); PROTHROMBIN TIME 17.9 SEC (9.5-12.2); PTT,PARTIAL THROMBOPLSTIN TIME 27.4 SEC (23.6-33.6)
[2023-02-15] MEDS ORDERED: Octreotide 100 MCG in Sodium Chloride 0.9% 100 ML IV SCH (20:15)
[2023-02-15 20:22] LABS: A/G RATIO 0.31; ALANINE AMINOTRANSFERASE,ALT 74 U/L (14-59); ALBUMIN 2.1 g/dL (3.4-5.0); ALKALINE PHOSPHATASE 107 U/L (46-116); AMYLASE 74 U/L (25-115); ASPARTATE AMNIOTRANSFERASE,AST 224 U/L (15-37); BILIRUBIN TOTAL 3.7 mg/dL (0.2-1.0); BLOOD UREA NITROGEN,BUN 11 mg/dL (7-18); CALCIUM 7.7 mg/dL (8.5-10.1); CARBON DIOXIDE,CO2 27 mmol/L (21-32); CHLORIDE,CL 99 mmol/L (98-107); CREATININE 1.2 mg/dL (0.55-1.02); GLUCOSE RANDOM 159 mg/dL (70-99); LIPASE 79 U/L (73-393); PHOSPHORUS 1.6 mg/dL (2.6-4.7); PROTEIN TOTAL,TP 8.8 g/dL (6.4-8.2); SODIUM,NA 140 mmol/L (136-145)
[2023-02-15 20:23] LABS: ESTIMATED GFR 50 mL/min (>=60)
[2023-02-15 20:24] LABS: ETHANOL BLOOD MEDICAL < 3 mg/dL (0-3); MAGNESIUM 0.9 mg/dL (1.8-2.4)
[2023-02-15] MEDS ORDERED: Magnesium Sulfate/Water 2 GM in Premix Bag 1 BAG IV ONE (20:24)
== END 2023-02-15 21:45 | disposition short-term general hospital (02) ==
LOC: VM.ED 19:32
DX: K92.2 Gastrointestinal hemorrhage, unspecified (principal); I10 Essential (primary) hypertension; Z88.5 Allergy status to narcotic agent; Z86.16 Personal history of COVID-19
CPT/HCPCS: 36415; 80053; 80307; 82140; 82150; 83605; 83690; 83735; 84100; 84484; 85025; 85610; 85730; 94760; 96365; 96368; 96375; 96376; 99284; 99285-25; C9113; J0696; J2354-JA; J3475; J3490; J7030

== ENCOUNTER 2023-08-29 08:26 | Inpatient (IN) | payer MEDICARE, MEDICAID ==
[2023-08-29] MEDS: HYDROmorphone 1 MG/ML Syringe IVPUSH ONE ×2 (08:50→12:19)
[2023-08-29] MEDS: Sodium Chloride 0.9% 1,000 ML IV ONE (08:50)
[2023-08-29] MEDS: Ondansetron 4 MG/2 ML SDV IVPUSH ONE ×2 (08:50→12:17)
[2023-08-29 08:51] LABS: BASOPHILS PERCENT AUTO 0.4 % (0.2-1.2); EOSINOPHILS ABSOLUTE AUTO 0.1 x10^3/uL (0.0-0.5); EOSINOPHILS PERCENT AUTO 0.9 % (0.0-4.0); HEMATOCRIT 38.3 % (33.0-47.0); HEMOGLOBIN 12.1 g/dL (12.0-16.0); IMMATURE GRAN ABSOLUTE AUTO 0.01 x10^3/uL (0.00-0.07); LYMPHOCYTES ABSOLUTE AUTO 1.5 x10^3/uL (1.0-4.8); LYMPHOCYTES PERCENT AUTO 19.7 % (25.0-50.0); MEAN CORPUSCULAR HEMOGLOBIN 28.1 pg (26.0-32.0); MEAN CORPUSCULAR HGB CONC 31.6 g/dL (32.0-36.0); MEAN CORPUSCULAR VOLUME 89.1 fL (78.0-93.0); MONOCYTES ABSOLUTE AUTO 0.7 x10^3/uL (0.0-0.8); MONOCYTES PERCENT AUTO 8.6 % (2.0-11.0); NEUTROPHILS ABSOLUTE AUTO 5.5 x10^3/uL (1.8-7.7); NEUTROPHILS PERCENT AUTO 70.3 % (50.0-80.0); PLATELET COUNT,PLT 128 x10^3/uL (130-400); WHITE BLOOD CELL COUNT,WBC 7.8 x10^3/uL (4.0-10.0)
[2023-08-29 09:33] LABS: INR 1.2 (0.9-1.1); PROTHROMBIN TIME 12.5 SEC (9.5-12.2)
[2023-08-29 09:35] LABS: A/G RATIO 0.32; ALANINE AMINOTRANSFERASE,ALT 29 U/L (14-59); ALBUMIN 2.4 g/dL (3.4-5.0); ALKALINE PHOSPHATASE 148 U/L (46-116); ASPARTATE AMNIOTRANSFERASE,AST 62 U/L (15-37); BILIRUBIN TOTAL 1.8 mg/dL (0.2-1.0); BLOOD UREA NITROGEN,BUN 16 mg/dL (7-18); C-REACTIVE PROTEIN < 0.50 mg/dL (<=0.50); CARBON DIOXIDE,CO2 30 mmol/L (21-32); CHLORIDE,CL 103 mmol/L (98-107); ESTIMATED GFR 61 mL/min (>=60); GLUCOSE RANDOM 103 mg/dL (70-99); LIPASE 64 U/L (19-71); PROTEIN TOTAL,TP 9.8 g/dL (6.4-8.2); SODIUM,NA 139 mmol/L (136-145)
[2023-08-29] MEDS: Iopamidol 612 MG/ML 100 ML Bottle IVPUSH ONE (10:14)
[2023-08-29] MEDS: Iopamidol 755 Mg/ML 100 ML Bottle IVPUSH ONE (12:28)
[2023-08-29 12:40] LABS: BILIRUBIN,URINE NEGATIVE (NEGATIVE); COLOR,URINE YELLOW (YELLOW); GLUCOSE,URINE NEGATIVE (NEGATIVE); KETONES,URINE NEGATIVE (NEGATIVE); LEUKOCYTE ESTERASE,URINE NEGATIVE (NEGATIVE); NITRITE,URINE NEGATIVE (NEGATIVE); OCCULT BLOOD,URINE TRACE-INTACT (NEGATIVE); PROTEIN,URINE NEGATIVE (NEGATIVE)
[2023-08-29 12:46] LABS: APPEARANCE,URINE CLEAR (CLEAR); BACTERIA,URINE NOT SEEN /HPF (NOT SEEN); MUCUS,URINE NOT SEEN /LPF (NOT SEEN); RBC,URINE 0-5 /HPF (NOT SEEN); SQUAMOUS EPITHELIAL CELLS,UR RARE /HPF (NOT SEEN); WBC,URINE 0-5 /HPF (NOT SEEN)
[2023-08-29] MEDS: Piperacillin/Tazobactam 3.375 GM in Sodium Chloride 0.9% 100 ML IV ONE (14:10)
[2023-08-29] MEDS ORDERED: Flumazenil 0.1 MG/ML 5 ML MDV IVPUSH PRN (14:16)
[2023-08-29] MEDS ORDERED: Ondansetron 4 MG/2 ML SDV IV PRN (14:21)
[2023-08-29] MEDS: hydrOXYzine HCl 50 MG/ML SDV IM ONE (14:29)
[2023-08-29] MEDS: LORazepam 2 MG/ML SDV IVPUSH PRN (14:32)
[2023-08-29] MEDS ORDERED: Naloxone 0.4 MG/ML SDV IVPUSH PRN (14:33)
[2023-08-29] MEDS ORDERED: HYDROmorphone 1 MG/ML Syringe IVPUSH PRN (14:33)
[2023-08-29] MEDS ORDERED: Acetaminophen 500 MG Tab PO PRN (14:34)
[2023-08-29] MEDS ORDERED: Albuterol 0.083% 2.5 MG/3 ML Neb Soln INH PRN (14:34)
[2023-08-29] MEDS: Sodium Chloride 0.9% 1,000 ML IV SCH (14:46)
[2023-08-29] MEDS: Pantoprazole 40 MG Vial IVPUSH SCH (17:39)
[2023-08-29] MEDS: hydrOXYzine HCl 25 MG Tab PO PRN (17:47)
[2023-08-29] MEDS ORDERED: Sodium Chloride 0.9% 1,000 ML IV SCH (18:00)
[2023-08-29] MEDS: Piperacillin/Tazobactam 3.375 GM in Sodium Chloride 0.9% 100 ML IV SCH (18:20)
[2023-08-29] MEDS: Propranolol 20 MG Tab PO SCH (21:26)
[2023-08-29] MEDS: Gabapentin 100 MG Cap PO SCH (21:27)
[2023-08-29] MEDS: Magnesium Oxide 400 MG Tab PO SCH (21:27)
[2023-08-30] MEDS ORDERED: Spironolactone 25 MG Tab PO SCH (09:00)
== END 2023-08-29 21:08 | disposition short-term general hospital (02) | DRG 445 ==
LOC: VM.ED 08:26 → VM.MS 13:16
PROVIDERS: ADMIT Nurse Practitioner Family; ATTEND Internal Medicine
DX: K80.00 Calculus of gallbladder with acute cholecystitis without obstruction (principal); I85.00 Esophageal varices without bleeding; K70.30 Alcoholic cirrhosis of liver without ascites; D69.6 Thrombocytopenia, unspecified; F17.210 Nicotine dependence, cigarettes, uncomplicated; E83.42 Hypomagnesemia; M19.90 Unspecified osteoarthritis, unspecified site; F10.20 Alcohol dependence, uncomplicated; K80.10 Calculus of gallbladder with chronic cholecystitis without obstruction; I10 Essential (primary) hypertension; E53.8 Deficiency of other specified B group vitamins; F41.9 Anxiety disorder, unspecified; F32.A Depression, unspecified; K76.9 Liver disease, unspecified; J43.9 Emphysema, unspecified; Z88.5 Allergy status to narcotic agent; Z88.8 Allergy status to other drugs, medicaments and biological substances; Z86.010 Personal history of colon polyps; Z98.49 Cataract extraction status, unspecified eye; Z98.890 Other specified postprocedural states; Z93.3 Colostomy status; Z79.899 Other long term (current) drug therapy
CPT/HCPCS: 36415; 73070; 74174; 80053; 81001; 83690; 85025; 85610; 85730; 86140; J1170 ×2; J2405 ×2; J7030; Q9967; 82140; A9270-GY; C9113; J2060; J2543; J3410; J3490

== ENCOUNTER 2023-12-20 09:57 | Emergency (ER) | payer MEDICARE, MEDICAID | END 2023-12-20 11:15 | disposition home or self-care (01) | LOC: VM.ED 09:57 | DX: L24.9 Irritant contact dermatitis, unspecified cause (principal); I10 Essential (primary) hypertension; Z88.5 Allergy status to narcotic agent; Z79.899 Other long term (current) drug therapy; Z86.16 Personal history of COVID-19 | CPT/HCPCS: 99282; 99283 ==

== ENCOUNTER 2024-05-19 05:36 | Inpatient (IN) | payer MEDICARE, MEDICAID ==
[2024-05-19 06:35] LABS: BASOPHILS PERCENT AUTO 0.5 % (0.2-1.2); EOSINOPHILS ABSOLUTE AUTO 0.2 x10^3/uL (0.0-0.5); EOSINOPHILS PERCENT AUTO 3.2 % (0.0-4.0); HEMATOCRIT 31.1 % (33.0-47.0); HEMOGLOBIN 10.3 g/dL (12.0-16.0); IMMATURE GRAN ABSOLUTE AUTO 0.02 x10^3/uL (0.00-0.07); LYMPHOCYTES ABSOLUTE AUTO 1.4 x10^3/uL (1.0-4.8); LYMPHOCYTES PERCENT AUTO 24.1 % (25.0-50.0); MEAN CORPUSCULAR HEMOGLOBIN 27.6 pg (26.0-32.0); MEAN CORPUSCULAR HGB CONC 33.1 g/dL (32.0-36.0); MEAN CORPUSCULAR VOLUME 83.4 fL (78.0-93.0); MONOCYTES ABSOLUTE AUTO 0.5 x10^3/uL (0.0-0.8); NEUTROPHILS ABSOLUTE AUTO 3.7 x10^3/uL (1.8-7.7); NEUTROPHILS PERCENT AUTO 62.9 % (50.0-80.0); PLATELET COUNT,PLT 98 x10^3/uL (130-400); RED BLOOD CELL COUNT 3.73 x10^6/uL (4.00-5.50); WHITE BLOOD CELL COUNT,WBC 5.9 x10^3/uL (4.0-10.0)
[2024-05-19 06:48] LABS: CORONAVIRUS COVID-19 NAA NEGATIVE (NEGATIVE); INFLUENZA A NAA NEGATIVE (NEGATIVE); INFLUENZA B NAA NEGATIVE (NEGATIVE); RESPIRATORY SYNCYTIAL VIR NAA NEGATIVE (NEGATIVE)
[2024-05-19 06:51] LABS: A/G RATIO 0.32; ALANINE AMINOTRANSFERASE,ALT 37 U/L (14-59); ALKALINE PHOSPHATASE 116 U/L (46-116); ASPARTATE AMNIOTRANSFERASE,AST 88 U/L (15-37); BILIRUBIN TOTAL 2.3 mg/dL (0.2-1.0); BLOOD UREA NITROGEN,BUN 9 mg/dL (7-18); CALCIUM 7.7 mg/dL (8.5-10.1); CARBON DIOXIDE,CO2 28 mmol/L (21-32); CHLORIDE,CL 95 mmol/L (98-107); CREATININE 1.2 mg/dL (0.55-1.02); GLUCOSE RANDOM 101 mg/dL (70-99); POTASSIUM,K 3.5 mmol/L (3.5-5.1); PROTEIN TOTAL,TP 8.3 g/dL (6.4-8.2); SODIUM,NA 130 mmol/L (136-145)
[2024-05-19] MEDS: Sodium Chloride 0.9% 1,000 ML IV ONE (06:51)
[2024-05-19 06:52] LABS: ANION GAP 10.5 mmol/L (5-15); ESTIMATED GFR 49 mL/min (>=60)
[2024-05-19] MEDS: cefTRIAXone 1 GM Vial IVPUSH ONE (08:03)
[2024-05-19] MEDS ORDERED: methylPREDNISolone Sodium Succinate 40 MG/1 ML SDV IVPUSH SCH (08:15)
[2024-05-19] MEDS: Nicotine 21 MG/24 Hr Patch TRDERM SCH (09:24)
[2024-05-19] MEDS: Doxycycline Monohydrate 100 MG Cap PO SCH (09:26)
[2024-05-19] MEDS: cefTRIAXone 1 GM Vial IVPUSH SCH (09:27)
[2024-05-19] MEDS: Magnesium Sulfate/Water 4 GM in Premix Bag 1 BAG IV ONE (09:27)
[2024-05-19] MEDS: methylPREDNISolone Sodium Succinate 40 MG/1 ML SDV IVPUSH SCH (09:28)
[2024-05-19] MEDS: Magnesium Oxide 400 MG Tab PO SCH (09:38)
[2024-05-19] MEDS ORDERED: Ondansetron 4 MG Tab.DIS PO PRN (14:10)
[2024-05-19] MEDS ORDERED: tiZANidine 4 MG Tab PO PRN (15:07)
[2024-05-19] MEDS: Albuterol/Ipratropium 3.0-0.5 MG/3 ML Neb Soln NEB SCH (15:15)
[2024-05-19] MEDS: Potassium Chloride 10 MEQ Tab.ER PO SCH (15:15)
[2024-05-19] MEDS: Omeprazole 20 MG Cap.CR PO SCH (15:15)
[2024-05-19] MEDS: Gabapentin 100 MG Cap PO SCH (20:21)
[2024-05-19] MEDS: Propranolol 20 MG Tab PO SCH (20:22)
[2024-05-19] MEDS: URSODIOL 250 MG PO SCH (23:19)
[2024-05-20] MEDS: Acetaminophen 500 MG Tab PO PRN (02:37)
[2024-05-20 07:05] LABS: BASOPHILS PERCENT AUTO 0.1 % (0.2-1.2); HEMATOCRIT 30.7 % (33.0-47.0); HEMOGLOBIN 10.6 g/dL (12.0-16.0); IMMATURE GRAN ABSOLUTE AUTO 0.02 x10^3/uL (0.00-0.07); LYMPHOCYTES ABSOLUTE AUTO 0.7 x10^3/uL (1.0-4.8); LYMPHOCYTES PERCENT AUTO 6.4 % (25.0-50.0); MEAN CORPUSCULAR HGB CONC 34.5 g/dL (32.0-36.0); MONOCYTES ABSOLUTE AUTO 0.4 x10^3/uL (0.0-0.8); NEUTROPHILS ABSOLUTE AUTO 9.6 x10^3/uL (1.8-7.7); NEUTROPHILS PERCENT AUTO 89.3 % (50.0-80.0); PLATELET COUNT,PLT 111 x10^3/uL (130-400); RED BLOOD CELL COUNT 3.79 x10^6/uL (4.00-5.50); WHITE BLOOD CELL COUNT,WBC 10.7 x10^3/uL (4.0-10.0)
[2024-05-20 07:16] LABS: A/G RATIO 0.32; ALBUMIN 2.2 g/dL (3.4-5.0); BILIRUBIN TOTAL 1.3 mg/dL (0.2-1.0); CALCIUM 8.2 mg/dL (8.5-10.1); CREATININE 0.9 mg/dL (0.55-1.02); EST CRCL DRUG DOSING (CG) 47.32 mL/min; POTASSIUM,K 4.1 mmol/L (3.5-5.1); PROTEIN TOTAL,TP 9.1 g/dL (6.4-8.2)
[2024-05-20 07:17] LABS: ANION GAP 9.1 mmol/L (5-15)
[2024-05-20] MEDS: Ferrous Sulfate 325 MG Tab PO SCH (08:37)
[2024-05-20] MEDS: Cyanocobalamin (Vitamin B12) 250 MCG Tab PO SCH (08:37)
[2024-05-20] MEDS: Ergocalciferol (Vitamin D2) 1.25 MG Cap PO SCH (08:44)
[2024-05-20] MEDS: guaiFENesin 600 MG Tab.ER PO SCH (08:52)
[2024-05-20] MEDS: Benzonatate 100 MG Cap PO SCH (08:52)
[2024-05-20] MEDS: Arformoterol 15 MCG/2 ML Neb Soln NEB SCH (12:44)
[2024-05-20] MEDS: Budesonide 0.5 MG/2 ML Neb Susp NEB SCH (12:44)
[2024-05-20] MEDS ORDERED: Budesonide 0.5 MG/2 ML Neb Susp NEB SCH (21:00)
[2024-05-20] MEDS ORDERED: Arformoterol 15 MCG/2 ML Neb Soln NEB SCH (21:00)
[2024-05-21 07:15] LABS: HEMATOCRIT 36.2 % (33.0-47.0); HEMOGLOBIN 12.1 g/dL (12.0-16.0); IMMATURE GRAN ABSOLUTE AUTO 0.04 x10^3/uL (0.00-0.07); LYMPHOCYTES ABSOLUTE AUTO 0.9 x10^3/uL (1.0-4.8); LYMPHOCYTES PERCENT AUTO 6.5 % (25.0-50.0); MEAN CORPUSCULAR HEMOGLOBIN 27.4 pg (26.0-32.0); MEAN CORPUSCULAR HGB CONC 33.4 g/dL (32.0-36.0); MEAN CORPUSCULAR VOLUME 82.1 fL (78.0-93.0); MONOCYTES ABSOLUTE AUTO 0.5 x10^3/uL (0.0-0.8); MONOCYTES PERCENT AUTO 3.8 % (2.0-11.0); NEUTROPHILS ABSOLUTE AUTO 12.6 x10^3/uL (1.8-7.7); NEUTROPHILS PERCENT AUTO 89.4 % (50.0-80.0); PLATELET COUNT,PLT 120 x10^3/uL (130-400); RED BLOOD CELL COUNT 4.41 x10^6/uL (4.00-5.50); WHITE BLOOD CELL COUNT,WBC 14.1 x10^3/uL (4.0-10.0)
[2024-05-21 07:25] LABS: A/G RATIO 0.31; ALBUMIN 2.5 g/dL (3.4-5.0); BILIRUBIN TOTAL 1.4 mg/dL (0.2-1.0); CALCIUM 8.5 mg/dL (8.5-10.1); CREATININE 0.9 mg/dL (0.55-1.02); EST CRCL DRUG DOSING (CG) 47.32 mL/min; POTASSIUM,K 5.2 mmol/L (3.5-5.1); PROTEIN TOTAL,TP 10.5 g/dL (6.4-8.2)
[2024-05-21 07:28] LABS: ANION GAP 10.2 mmol/L (5-15)
[2024-05-21] MEDS: Albuterol/Ipratropium 3.0-0.5 MG/3 ML Neb Soln NEB PRN (09:55)
== END 2024-05-21 12:55 | disposition home or self-care (01) | DRG 193 ==
LOC: VM.ED 05:36 → VM.MS 08:07
PROVIDERS: ADMIT Internal Medicine; ATTEND Internal Medicine
DX: J18.9 Pneumonia, unspecified organism (principal); J96.01 Acute respiratory failure with hypoxia; Z86.16 Personal history of COVID-19; Z79.899 Other long term (current) drug therapy; Z88.5 Allergy status to narcotic agent; I85.00 Esophageal varices without bleeding; J44.0 Chronic obstructive pulmonary disease with (acute) lower respiratory infection; J44.1 Chronic obstructive pulmonary disease with (acute) exacerbation; D50.0 Iron deficiency anemia secondary to blood loss (chronic); F41.8 Other specified anxiety disorders; E87.6 Hypokalemia; I95.9 Hypotension, unspecified; M54.9 Dorsalgia, unspecified; E55.9 Vitamin D deficiency, unspecified; E83.42 Hypomagnesemia; K74.60 Unspecified cirrhosis of liver; M79.10 Myalgia, unspecified site; F10.90 Alcohol use, unspecified, uncomplicated; K70.30 Alcoholic cirrhosis of liver without ascites; I10 Essential (primary) hypertension; F17.210 Nicotine dependence, cigarettes, uncomplicated; Z88.8 Allergy status to other drugs, medicaments and biological substances; Z93.2 Ileostomy status; Z90.49 Acquired absence of other specified parts of digestive tract
CPT/HCPCS: 0241U; 36415; 71046; 80053; 83605; 83735; 84484; 85025; 94640; 96374; 97116; 97161; 99284; 99285; A9270-GY; J0696; J2919; J3475; J3490; J7030; J7620-GY